=== PATIENT | male | born 1990 | race Caucasian/White ===

== ENCOUNTER 2020-06-08 17:36 | Emergency (ER) | payer SELFPAY ==
[2020-06-08 17:43] VITALS: BP 149/120; PULSE 117; RESP 20; TEMP 36.5; O2SAT 94
--- NOTE | 2020-06-08 17:54 | ED.GENADULT ---
HPI - General Adult General Chief complaint: Unspecified Stated complaint: SHAKEY, ETOH USE LAST NIGHT Time Seen by Provider: 06/08/20 17:51 Source: patient Mode of arrival: ambulatory Limitations: no limitations History of Present Illness HPI narrative: Patient is a 30-year-old male who presents complaining of nausea, vomiting and dizziness. Patient reports drinking 30+ alcoholic beverages last afternoon and evening. He denies chest pain or shortness of breath. He denies all other complaints. MD complaint: Nausea Related Data Home Medications Medication Instructions Recorded Confirmed metoprolol succinate 25 mg 25 mg PO DAILY 05/15/19 tablet,extended release 24 hr Allergies Allergy/AdvReac Type Severity Reaction Status Date / Time Cephalosporins Allergy Mild Unknown Verified 06/08/20 17:47 cefadroxil Allergy Unknown Skin Verified 06/08/20 17:47 Reaction Penicillins Allergy Unknown Rash Verified 06/08/20 17:47 Review of Systems Review of Systems: Narrative: CONSTITUTIONAL: Denies fever, chills, or sweats. EYES: Denies visual changes, redness, or discharge. ENT: Denies rhinorrhea, congestion, sore throat, or otalgia. CARDIOVASCULAR: Denies chest pain, palpitations, or edema. RESPIRATORY: Denies cough or dyspnea. GASTROINTESTINAL: Denies abdominal pain, reports nausea and vomiting. GENITOURINARY: Denies dysuria or hematuria. SKIN: Denies rash or itching. MUSCULOSKELETAL: Denies back pain, joint pain, or myalgia. NEUROLOGIC: Denies headache, numbness, dizziness, or weakness. PSYCHIATRIC: Denies anxiety or depression. [facility] Past Medical History Medical History Anxiety Bronchitis Exercise-induced asthma HTN (hypertension) IBS (irritable bowel syndrome) Migraines SVT (supraventricular tachycardia) Surgical History Surgical History H/O hernia repair Hx of tonsillectomy Family History Family History Grandparent Depression Mother Depression Hypertension Social History Social History Smoking status: Current every day smoker Alcohol intake: current Gender identity (if verbalized by the patient): Male Exam Narrative: Exam Narrative: GENERAL: Well-appearing, well-nourished, and in no acute distress. HEAD: Normocephalic, atraumatic. EYES: EOMI. No redness or drainage. Conjunctiva are normal. ENT: Mucous membranes pink and moist. CHEST: No respiratory distress. HEART: Regular rate and rhythm. No murmur appreciated. Normal peripheral pulses. GI: Soft, nontender without rebound, or guarding. No distention. Bowel sounds normal in all quadrants. EXTREMITIES: Normal range of motion. SKIN: Warm, dry, no rash. NEURO: No focal deficits. Alert and oriented x3. Gait steady. PSYCH: Normal affect. Patient appears slightly anxious. Course Vital Signs Vital signs: Vital Signs Temperature 36.5 C 06/08/20 17:43 Pulse Rate 117 H 06/08/20 17:43 Respiratory Rate 20 06/08/20 17:43 Blood Pressure 149/120 H 06/08/20 17:43 Pulse Oximetry 94 06/08/20 17:43 Temperature 36.5 C 06/08/20 17:43 Pulse Rate 117 H 06/08/20 17:43 Respiratory Rate 20 06/08/20 17:43 Blood Pressure 149/120 H 06/08/20 17:43 Pulse Oximetry 94 06/08/20 17:43 Reviewed. Patient has been instructed to follow-up with his PCP regarding his blood pressure. Medical Decision Making MDM Narrative Medical decision making narrative: Patient's vital signs are stable. Discussed with patient binge drinking. Patient well-hydrated in ED, Zofran given. Patient reports he is feeling better at this time. Patient is stable for discharge home with outpatient follow-up as needed. Differential Diagnosis Differential Diagnosis: EtOH, gastroenteritis, pancreatitis, viral illness, dehydration
[2020-06-08 18:19] LABS: Basophils Percent Auto 0.5 % (0.2-1.2); Eosinophils Percent Auto 0.4 % (0-4.4); Hematocrit 47.6 % (42.0-52.0); Hemoglobin 16.4 g/dL (14.0-18.0); Immature Granulocyte Absolute 0.03 K/mm3 (0.00-0.031); Immature Granulocyte Percent A 0.4 % (0-0.5); Lymphocytes Absolute Auto 1.75 K/mm3 (0.9-3.2); Lymphocytes Percent Auto 23.6 % (18.3-44.2); Mean Corpuscular HGB Conc 34.5 g/dl (32-36); Mean Corpuscular Hemoglobin 30.5 pg (26-34); Mean Corpuscular Volume 88.5 fl (80-100); Mean Platelet Volume 9.8 fl (7.4-10.4); Monocytes Absolute Auto 0.5 K/mm3 (0.1-0.6); Monocytes Percent Auto 6.9 % (2.6-8.5); Neutrophils Absolute Auto 5.1 K/mm3 (1.3-6.7); Neutrophils Percent Auto 68.2 % (45.5-73.1); Platelet Count Result 196 k/mm3 (150-375); Red Blood Count 5.38 M/mm3 (4.6-6.20); Red Cell Distribution Width 12.8 % (11.5-14.5); White Blood Count 7.4 K/mm3 (4.5-10.0)
[2020-06-08 18:30] VITALS: BP 147/106; PULSE 105; RESP 20; O2SAT 99
[2020-06-08] MEDS: SODIUM CHLORIDE 0.9% IV 1,000 ML 999 ML IV CONT ×2 (18:30→19:15)
[2020-06-08] MEDS: ONDANSETRON INJ 4 MG/2 ML VIAL IV PUSH (18:30)
[2020-06-08 18:32] LABS: Alanine Aminotransferase 147 U/L (4-50); Albumin Level 4.5 g/dL (3.5-5.1); Alkaline Phosphatase 73 U/L (38-126); Anion Gap 11 mmol/L (8-16); Aspartate Amino Transferase 86 U/L (17-59); Bilirubin,Total 0.5 mg/dL (0.2-1.3); Blood Urea Nitrogen 6 mg/dL (9-20); Calcium 9.2 mg/dL (8.4-10.2); Carbon Dioxide 25 mmol/L (22-30); Chloride 100 mmol/L (98-107); Estimated CRCL calculation 138 ml/min; Estimated Glomerular Filt Rate > 60; Glucose 119 mg/dL (75-110); Lipase 32 U/L (23-300); Potassium 4.1 mmol/L (3.4-5.0); Sodium 136 mmol/L (137-145)
[2020-06-08 18:53] VITALS: BP 144/96; PULSE 101; RESP 20; O2SAT 98
[2020-06-08 19:05] VITALS: PULSE 92
[2020-06-08 19:38] VITALS: BP 156/103; PULSE 92; RESP 18; O2SAT 100
== END 2020-06-08 19:46 | disposition home or self-care (01) ==
PROVIDERS: Emergency Provider Nurse Practitioner; PCP Physician Assistant
DX: E86.0 Dehydration (principal); F10.129 Alcohol abuse with intoxication, unspecified; F41.9 Anxiety disorder, unspecified; I10 Essential (primary) hypertension; K58.9 Irritable bowel syndrome, unspecified; J45.990 Exercise induced bronchospasm; F17.200 Nicotine dependence, unspecified, uncomplicated
CPT/HCPCS: 36415; 80053; 83690; 85025; 96361; 96374; 99284; J2405; J7030

== ENCOUNTER 2020-07-14 01:19 | Emergency (ER) | payer SELFPAY ==
--- NOTE | ~2020-07-14 | CT_ITS ---
EXAMINATION: CT brain wo con DATE: 07/14/2020 01:52 INDICATION: Head injury. Dizziness. TECHNIQUE: Computed tomography (CT) of the head was performed without intravenous contrast. The mA wa s adjusted according to patient size. Iterative reconstruction technique was employed. The dose-lengt h product was 681.00 mGy-cm. COMPARISON: Head CT 07/13/2010 FINDINGS: There is no intracranial hemorrhage, acute infarction, or abnormal intracranial mass lesion . The ventricles are normal in size. The orbits are normal. There is mild mucosal thickening in the p aranasal sinuses. The mastoid air cells are normal. There is right-sided scalp soft tissue swelling. Inferior to the right pinna, there is a 13 mm subcutaneous mass, likely a sebaceous cyst. IMPRESSION: 1. Normal brain. Reviewed, dictated and finalized at location A. HANDLERS SUPERVISOR IMPRESSION: 1. Normal brain.
--- NOTE | ~2020-07-14 | CT_ITS ---
EXAMINATION: CT cervical spine wo con DATE: 07/14/2020 01:53 INDICATION: Neck pain. Injury. TECHNIQUE: Computed tomography (CT) of the cervical spine was performed without intravenous contrast. Automated exposure control and iterative reconstruction technique were employed. The dose-length pro duct was 481.61 mGy-cm. COMPARISON: None FINDINGS: There is 7 degrees dextrocurvature of cervical spine. There is mild kyphosis of cervical sp ine. Vertebral body heights and intervertebral disc heights are normal. The following disc levels are specifically discussed: C2-C3: There is mild right uncovertebral joint osteoarthritis. There is no facet joint osteoarthritis . There is no neural foraminal stenosis. There is no central canal stenosis. C3-C4: There is mild bilateral uncovertebral joint osteoarthritis. There is mild left facet joint ost eoarthritis. There is no neural foraminal stenosis. There is no central canal stenosis. C4-C5: There is mild bilateral uncovertebral joint osteoarthritis. There is no facet joint osteoarthr itis. There is no neural foraminal stenosis. There is no central canal stenosis. C5-C6: There is mild bilateral uncovertebral joint osteoarthritis. There is no facet joint osteoarthr itis. There is no neural foraminal stenosis. There is mild central canal stenosis. C6-C7: There is no uncovertebral joint osteoarthritis. There is no facet joint osteoarthritis. There is no neural foraminal stenosis. There is no central canal stenosis. C7-T1: There is no uncovertebral joint osteoarthritis. There is mild bilateral facet joint osteoarthr itis. There is no neural foraminal stenosis. There is no central canal stenosis. IMPRESSION: 1. No fracture. 2. Mild cervical spondylosis. Reviewed, dictated and finalized at location A. [employer] OPERATIONS SPECIALIST
[2020-07-14 01:19] VITALS: BP 158/98; PULSE 112; RESP 18; TEMP 36.7; O2SAT 98
[2020-07-14] MEDS: fentaNYL CITRATE INJ (*CRX) 100 MCG/2 ML VIAL 50 MCG IV PUSH (01:39)
--- NOTE | 2020-07-14 02:42 | ED.FALL ---
HPI - Fall General Chief Complaint: Fall Stated Complaint: fall last night abrasion to head Time Seen by Provider: 07/14/20 01:23 History of Present Illness HPI Narrative: Patient is a 30-year-old male who presents ER after experiencing trauma to the head. Patient was walking slipped on ice and struck his head against a brick wall. Denies loss consciousness but did shear off a large portion repair to the frontoparietal region of his scalp. Reports later after striking his head he developed severe nausea and dizziness. No neck pain. Called EMS for further evaluation. Unknown last tetanus. Cannot describe aggravating or alleviating factors. Patient also experiencing mild frontal headache has not improved with Tylenol/ibuprofen. Related Data Home Medications Medication Instructions Recorded Confirmed metoprolol succinate 25 mg 25 mg PO DAILY 05/15/19 tablet,extended release 24 hr Allergies Allergy/AdvReac Type Severity Reaction Status Date / Time Cephalosporins Allergy Mild Unknown Verified 06/08/20 17:47 cefadroxil Allergy Unknown Skin Verified 06/08/20 17:47 Reaction Penicillins Allergy Unknown Rash Verified 06/08/20 17:47 Review of Systems Eyes: Eyes: Denies change in vision ENT: Reports dizziness and Denies nasal congestion Gastrointestinal: Gastrointestinal: Reports nausea and Denies vomiting Neurologic: Denies syncope, Reports headache(s), Denies focal weakness and Denies numbness PMFSH Past Medical History Medical History Anxiety Bronchitis Exercise-induced asthma HTN (hypertension) IBS (irritable bowel syndrome) Migraines SVT (supraventricular tachycardia) Surgical History Surgical History H/O hernia repair Hx of tonsillectomy Family History Family History Grandparent Depression Mother Depression Hypertension Social History Social History Smoking status: Current every day smoker Alcohol intake: current Gender identity (if verbalized by the patient): Male Exam Narrative: Exam Narrative: GENERAL: Well-appearing, well-nourished, and in no acute distress. HEAD: Normocephalic, abrasion with missing hair right frontoparietal region of the scalp. No lacerations. EYES: PERRL and EOMI. ENT: TMs normal bilaterally. NECK: C-spine immobilized. No midline tenderness. CHEST: Clear to auscultation. No respiratory distress. HEART: Regular rate and rhythm. Normal peripheral pulses. EXTREMITIES: Normal range of motion. No edema. NEURO: Alert and oriented x3. PSYCH: Normal mood and affect. Course Course Emergency Course: Headache better with fentanyl. Nausea and dizziness resolved with Zofran and meclizine. Discharge home. Vital Signs Vital signs: Vital Signs Temperature 98.1 F 07/14/20 01:19 Pulse Rate 112 H 07/14/20 01:19 Respiratory Rate 18 07/14/20 01:19 Blood Pressure 158/98 H 07/14/20 01:19 Pulse Oximetry 98 07/14/20 01:19 Temperature 98.1 F 07/14/20 01:19 Pulse Rate 112 H 07/14/20 01:19 Respiratory Rate 18 07/14/20 01:19 Blood Pressure 158/98 H 07/14/20 01:19 Pulse Oximetry 98 07/14/20 01:19 MDM - Fall Imaging Data Radiologist's impression: CT brain: No acute intracranial process. CT cervical spine: Mild degenerative change. No fracture or acute abnormality. Discharge Plan Discharge Clinical Impression: Concussion, Abrasion of scalp Patient Disposition: Home, Self-Care Condition: Stable Instructions: Concussion (ED), Abrasion (ED) Additional Instructions: Return to the ER if you cannot keep down food or water, you have fever over 100.4 ?F, you have constant persistent dizziness, you have additional concerns. Prescriptions: New ondansetron 4 mg tablet,disintegrating 4 mg PO Q6H PRN (
[2020-07-14 03:00] VITALS: BP 148/84; PULSE 102; RESP 16; O2SAT 97
[2020-07-14] MEDS: SODIUM CHLORIDE 0.9% IV 1,000 ML 999 ML IV CONT (03:15)
[2020-07-14] MEDS: TETANUS,DIPHTHERIA,AC PERTUSSIS ADULT (0.5 ML) BOOSTRIX IM (03:16)
[2020-07-14] MEDS: MECLIZINE HCL 25 MG TABLET PO (03:16)
[2020-07-14] MEDS: ONDANSETRON INJ 4 MG/2 ML VIAL IV PUSH (03:16)
[2020-07-14 04:00] VITALS: BP 128/83; PULSE 90; RESP 16; O2SAT 95
[2020-07-14 05:00] VITALS: BP 112/87; PULSE 87; RESP 16; O2SAT 95
== END 2020-07-14 05:05 | disposition home or self-care (01) ==
PROVIDERS: Emergency Provider Emergency Medicine; PCP Physician Assistant
DX: S06.0X0A Concussion without loss of consciousness, initial encounter (principal); S00.01XA Abrasion of scalp, initial encounter; Z23 Encounter for immunization; I10 Essential (primary) hypertension; K58.9 Irritable bowel syndrome, unspecified; J45.990 Exercise induced bronchospasm; F17.200 Nicotine dependence, unspecified, uncomplicated; W00.0XXA Fall on same level due to ice and snow, initial encounter
CPT/HCPCS: 70450; 72125; 90471; 90715; 96361; 96374; 96375; 99284; A9270; J2405; J3010; J7030

== ENCOUNTER 2020-10-27 02:41 | Emergency (ER) | payer SELFPAY ==
[2020-10-27 02:52] VITALS: BP 121/76; PULSE 100; RESP 18; TEMP 36.3; O2SAT 98
== END 2020-10-27 03:38 | disposition left against medical advice (07) ==
LOC: ANHED 03:23
PROVIDERS: PCP Physician Assistant
DX: F41.9 Anxiety disorder, unspecified (principal)
CPT/HCPCS: 99199

== ENCOUNTER → 2020-12-29 18:27 | Emergency (ER) | payer SELFPAY ==
--- NOTE | ~2020-12-29 | XR_ITS ---
EXAMINATION: XR chest 2V EXAM DATE: 12/29/2020 18:54 INDICATION: Midsternal chest pain. TECHNIQUE: Frontal and lateral projections of the chest obtained and reviewed. Comparison is made to prior examination from 01/12/2019. FINDINGS: The lungs are clear. There are no pleural effusions. The cardiomediastinal silhouette is upper limits of normal. There is no pneumothorax suspected. The bones and soft tissues are unremark able. IMPRESSION: No acute cardiopulmonary findings. Reviewed, dictated and finalized at location A.
--- NOTE | 2020-12-29 18:29 | ECG_ITS ---
Measurements Intervals [place] Rate: 78 P: -1 [place]: 174 QRS: 26 QRSD: 100 T: -11 QT: 366 QTc: 417 Interpretive Statements SINUS RHYTHM CONSIDER INFERIOR INFARCT, AGE INDETERMINATE BORDERLINE T WAVE ABNORMALITY- ANTERIOR LEADS ABNORMAL ECG Electronically Signed On 12-30-2020 6:25:47 CDT by Terry Brizuela D.O.
[2020-12-29 18:37] VITALS: BP 126/85; PULSE 78; RESP 20; TEMP 36.8; O2SAT 98
--- NOTE | 2020-12-29 18:57 | PC.NURSE ---
PT [facility] STATES TOOK XANAX BEFORE COMING IN AND IS STARTING TO FEEL BETTER. STATES NO LONGER WANTS TO BE SEEN. NOTIFIED OF RISKS OF LEAVING WITH OUT BEING SEEN. VERBALIZES UNDERSTANDING.
== END | disposition left against medical advice (07) ==
PROVIDERS: PCP Physician Assistant
DX: R07.9 Chest pain, unspecified (principal); Z53.21 Procedure and treatment not carried out due to patient leaving prior to being seen by health care provider
CPT/HCPCS: 71046; 93005

== ENCOUNTER 2021-01-15 23:47 | Emergency (ER) | payer SELFPAY ==
--- NOTE | ~2021-01-15 | XR_ITS ---
XR chest 2V DATE: 01/16/2021 00:35 INDICATION: Left chest pain. Shortness of breath. TECHNIQUE: PA and lateral views COMPARISON: 12/29/2020 PA and lateral chest FINDINGS: Probable bilateral prominent cardiophrenic fat pads. Heart size appears normal. No hilar or mediastinal enlargement. No pulmonary infiltrate or consolidation, pleural effusion or pulmonary vas cular congestion or pneumothorax is detected. Included skeletal structures are unremarkable. IMPRESSION: No active disease Reviewed, dictated and finalized at location A. IMPRESSION: No active disease
[2021-01-15 23:48] VITALS: BP 149/90; PULSE 96; RESP 24; TEMP 36.2; O2SAT 98
--- NOTE | 2021-01-15 23:55 | ECG_ITS ---
Measurements Intervals [place] Rate: 87 P: -1 [place]: 152 QRS: 42 QRSD: 97 T: 26 QT: 354 QTc: 428 Interpretive Statements SINUS RHYTHM NONSPECIFIC T-WAVE ABNORMALITY- ANT/INF LEADS BORDERLINE ECG Electronically Signed On 01-16-2021 5:50:09 CDT by Terry Brizuela D.O.
[2021-01-16 00:20] LABS: Basophils Percent Auto 0.4 % (0.2-1.2); Eosinophils Absolute Auto 0.2 K/mm3 (0-0.3); Eosinophils Percent Auto 2.2 % (0-4.4); Hematocrit 42.4 % (42.0-52.0); Hemoglobin 13.9 g/dL (14.0-18.0); Immature Granulocyte Absolute 0.02 K/mm3 (0.00-0.031); Immature Granulocyte Percent A 0.3 % (0-0.5); Lymphocytes Absolute Auto 2.73 K/mm3 (0.9-3.2); Lymphocytes Percent Auto 38.2 % (18.3-44.2); Mean Corpuscular HGB Conc 32.8 g/dl (32-36); Mean Corpuscular Hemoglobin 29.1 pg (26-34); Mean Corpuscular Volume 88.7 fl (80-100); Mean Platelet Volume 10.3 fl (7.4-10.4); Monocytes Absolute Auto 0.4 K/mm3 (0.1-0.6); Monocytes Percent Auto 5.7 % (2.6-8.5); Neutrophils Absolute Auto 3.8 K/mm3 (1.3-6.7); Neutrophils Percent Auto 53.2 % (45.5-73.1); Platelet Count Result 172 k/mm3 (150-375); Red Blood Count 4.78 M/mm3 (4.6-6.20); Red Cell Distribution Width 12.8 % (11.5-14.5); White Blood Count 7.2 K/mm3 (4.5-10.0)
[2021-01-16 00:30] LABS: Anion Gap 8 mmol/L (8-16); Blood Urea Nitrogen 8 mg/dL (9-20); Calcium 9.2 mg/dL (8.4-10.2); Carbon Dioxide 24 mmol/L (22-30); Chloride 104 mmol/L (98-107); Estimated CRCL calculation 132 ml/min; Estimated Glomerular Filt Rate > 60; Glucose 131 mg/dL (65-110); Sodium 136 mmol/L (137-145)
[2021-01-16 00:37] LABS: INR 0.9; Prothrombin Time 11.7 Seconds (11.1-14.7)
[2021-01-16 00:38] LABS: Partial Thromboplastin Time 26.1 SECONDS (22.3-36.8)
[2021-01-16 00:43] LABS: Troponin I < 0.012 ng/mL (0.000-0.034)
[2021-01-16 03:11] VITALS: PULSE 82
[2021-01-16 03:12] VITALS: O2SAT 97
[2021-01-16 03:48] LABS: Troponin I < 0.012 ng/mL (0.000-0.034)
[2021-01-16 04:10] VITALS: O2SAT 94
[2021-01-16 04:15] VITALS: BP 123/71; PULSE 74; RESP 22; O2SAT 96
[2021-01-16 04:16] VITALS: PULSE 71; RESP 19; O2SAT 95
--- NOTE | 2021-01-16 04:18 | ED.CHESTPAIN ---
HPI - Chest Pain General Chief Complaint: Chest Pain Stated Complaint: cp,sob, pulse low, start new metoprolol dose ton Time Seen by Provider: 01/16/21 04:05 Source: patient and RN notes reviewed Mode of arrival: ambulatory Limitations: no limitations History of Present Illness HPI narrative: This is a 30 year old male with history of anxiety, hypertension and tachycardia who presents for evaluation of shortness of breath and chest pain. Patient states he takes metoprolol for hypertension and tachycardia. Tonight he increased his dose from 50 mg to 100 mg on the advice of his PCP. He reports 1.5 hour after taking his metoprolol he woke up feeling like he was having midsternal chest pain and shortness of breath. He reports his pulse felt low but he is not sure. He reports he has been evaluated for similar episodes in the past which were panic attacks. He states he felt sob for 1-2 hours. His chest pressure is nonradiating and it has resolved. He denies nausea, vomiting, leg swelling. His symptoms have resolved. Related Data Home Medications Medication Instructions Recorded Confirmed buspirone 10 mg PO BID 01/15/21 fluoxetine mg 01/15/21 lisinopril 01/15/21 metoprolol tartrate 01/15/21 tramadol mg 01/15/21 Allergies Allergy/AdvReac Type Severity Reaction Status Date / Time Penicillins Allergy Rash Verified 01/16/21 03:12 Review of Systems Review of Systems: All systems reviewed & are unremarkable except as noted in HPI and below PMFSH Past Medical History Medical History (Updated 01/16/21 @ 04:26 by Lisandra Leon MD) Anxiety Hypertension Tachycardia Social History Social History (Updated 01/16/21 @ 04:24 by Lisandra Leon MD) Smoking status: Current every day smoker Gender identity (if verbalized by the patient): Male Sexual Orientation (if Verbalized by the Patient): Straight or Heterosexual Exam Const: General: no acute distress and alert Orientation/consciousness: patient oriented x3 Eyes: EOM: EOMs intact bilaterally Chest: Chest palpation & inspection: normal inspection of the chest Resp: Effort & Inspection: normal respiratory effort and no retractions Auscultation: clear to auscultation bilaterally Cardio: Rate: regular rate Rhythm: regular rhythm Heart sounds: no murmurs GI: GI Palp: Yes Soft to palpation, No Tenderness to palpation present (GI) and No Guarding due to palpation present (GI) Auscultation: normal bowel sounds Neuro: General: patient oriented x3, moves all extremities and CN's II-XI intact bilaterally Extrem: General: normal to inspection Psych: Mental Status: mental status grossly normal Affect: normal affect Course Reevaluation(s) Reevaluation #1: I discussed with patient labs are unremarkable. This is likely anxiety attack. He will call PCP about his metoprolol dosage. HR in ER is 70s. Date: 01/16/21 Time: 04:24 Vital Signs Vital signs: Vital Signs Temperature 97.1 F L 01/15/21 23:48 Pulse Rate 96 01/15/21 23:48 Respiratory Rate 24 H 01/15/21 23:48 Blood Pressure 149/90 H 01/15/21 23:48 Pulse Oximetry 98 01/15/21 23:48 Temperature 97.1 F L 01/15/21 23:48 Pulse Rate 71 01/16/21 04:16 Respiratory Rate 19 01/16/21 04:16 Blood Pressure 123/71 01/16/21 04:15 Pulse Oximetry 95 01/16/21 04:16 MDM - Chest Pain Lab Data Attestation: I reviewed the patient's lab results. Result diagrams: 01/16/21 00:08 01/16/21 00:08 Labs: Lab Results 01/16/21 01/16/21 01/16/21 Range/Units 00:08 00:08 00:08 WBC 7.2 (4.5-10.0) K/mm3 RBC 4.78 (4.6-6.20) M/mm3 Hgb 13.9 L (14.0-18.0) g/dL Hct 42.4 (42.0-52.0) % MCV 88.7 (80-100) fl MCH 29.1 (26-34) pg MCHC 32.8 (32-36) g/dl RDW 12.8 (11.5-14.5) % Plt Count 172 (150-375) k/mm3 MPV 10.3 (7.4-10.4) fl Immature Gran % (Auto) 0.3 (0-0.5) % Neut % (Auto) 53.2 (45.5-73.1)
== END 2021-01-16 04:31 | disposition home or self-care (01) ==
PROVIDERS: Emergency Provider General Practice; PCP Physician Assistant
DX: R07.89 Other chest pain (principal); F41.9 Anxiety disorder, unspecified; I10 Essential (primary) hypertension; F17.210 Nicotine dependence, cigarettes, uncomplicated
CPT/HCPCS: 36415; 71046; 80048; 84484; 85025; 85610; 85730; 93005; 99284

== ENCOUNTER 2021-01-20 19:52 | Observation (INO) | payer SELFPAY ==
--- NOTE | ~2021-01-20 | CT_ITS ---
EXAMINATION: CT abdomen pelvis w con DATE: 01/20/2021 23:29 INDICATION: Right upper quadrant abdominal pain today TECHNIQUE: Computed tomography (CT) of the abdomen and pelvis was performed with 100 cc Omnipaque 350 intravenous contrast. Automated exposure control and iterative reconstruction technique were employe d. Exam dose: 1061.78 mGy-cm total exam DLP. COMPARISON: None. FINDINGS: Minimal atelectasis at the dependent lower lobes. No pericardial or pleural effusion. Diffuse hepatic steatosis. The gallbladder is distended. No gallbladder wall thickening or pericholecystic fluid or fat strandin g is evident. No bile duct or pancreatic duct dilatation. No pancreatic mass lesion or calcification. Normal splenic size. Normal morphology of the adrenal glands. 2.2 cm upper pole left renal probable cyst. Otherwise no renal mass lesion or urinary tract calculus or hydroureteronephrosis. The urinary bladder is unremarkable. Prostate calcifications are noted. Normal caliber of the abdominal aorta. No intraperitoneal or retroperitoneal or pelvic mass lesion or adenopathy or ascites. Normal appendix. No bowel obstruction, bowel wall thickening, pneumatosis or intraperitoneal free air . Small fat-containing umbilical hernia. Small fat-containing left inguinal hernia. No suspicious osteolytic or osteoblastic lesions. IMPRESSION: Distended gallbladder; consider gallbladder ultrasound examination considering the histor y of right upper quadrant abdominal pain Hepatic steatosis 2.2 cm upper pole left renal probable cyst Normal appendix Reviewed, dictated and finalized at Location A. Reviewed, dictated and finalized at location A. IMPRESSION: Distended gallbladder; consider gallbladder ultrasound examination considering the history of right upper quadrant abdominal pain Hepatic steatosis 2.2 cm upper pole left renal probable cyst Normal appendix
--- NOTE | ~2021-01-20 | US_ITS ---
EXAMINATION: US right upper quadrant DATE: 01/21/2021 08:47 INDICATION: Right upper quadrant abdominal pain. TECHNIQUE: Multiple grayscale and Doppler ultrasound images of the abdomen were obtained. COMPARISON: CT abdomen and pelvis 01/20/2021 FINDINGS: The visualized portions of the head and body of the pancreas are normal. There is diffuse h epatic steatosis. There is normal flow in main portal vein. The gallbladder is distended and contains gallstones. Gallbladder wall thickening is noted. The common duct is normal and measures 5 mm. There was no sonographic Powell sign. IMPRESSION: 1. Distended gallbladder with gallstones and gallbladder wall thickening, but no sonographic Powell s ign, consistent with acute cholecystitis. 2. Diffuse hepatic steatosis. Reviewed, dictated and finalized at location B. IMPRESSION: 1. Distended gallbladder with gallstones and gallbladder wall thickening, but n o sonographic Powell sign, consistent with acute cholecystitis. 2. Diffuse hepatic steatosis.
[2021-01-20 19:55] VITALS: BP 173/113; PULSE 57; RESP 18; TEMP 35.9; O2SAT 97
[2021-01-20 20:09] LABS: Basophils Percent Auto 0.3 % (0.2-1.2); Eosinophils Absolute Auto 0.2 K/mm3 (0-0.3); Eosinophils Percent Auto 1.8 % (0-4.4); Hematocrit 46.9 % (42.0-52.0); Hemoglobin 15.6 g/dL (14.0-18.0); Immature Granulocyte Absolute 0.04 K/mm3 (0.00-0.031); Immature Granulocyte Percent A 0.4 % (0-0.5); Lymphocytes Absolute Auto 2.25 K/mm3 (0.9-3.2); Lymphocytes Percent Auto 22.7 % (18.3-44.2); Mean Corpuscular HGB Conc 33.3 g/dl (32-36); Mean Corpuscular Hemoglobin 29.5 pg (26-34); Mean Corpuscular Volume 88.8 fl (80-100); Mean Platelet Volume 10.3 fl (7.4-10.4); Monocytes Absolute Auto 0.5 K/mm3 (0.1-0.6); Monocytes Percent Auto 5.1 % (2.6-8.5); Neutrophils Absolute Auto 6.9 K/mm3 (1.3-6.7); Neutrophils Percent Auto 69.7 % (45.5-73.1); Platelet Count Result 213 k/mm3 (150-375); Red Blood Count 5.28 M/mm3 (4.6-6.20); White Blood Count 9.9 K/mm3 (4.5-10.0)
[2021-01-20 20:22] LABS: Alanine Aminotransferase 95 U/L (4-50); Albumin Level 4.5 g/dL (3.5-5.1); Alkaline Phosphatase 66 U/L (38-126); Anion Gap 5 mmol/L (8-16); Aspartate Amino Transferase 58 U/L (17-59); Bilirubin,Total 0.5 mg/dL (0.2-1.3); Blood Urea Nitrogen 7 mg/dL (9-20); Calcium 10.1 mg/dL (8.4-10.2); Carbon Dioxide 29 mmol/L (22-30); Chloride 102 mmol/L (98-107); Estimated CRCL calculation 99 ml/min; Estimated Glomerular Filt Rate > 60; Glucose 105 mg/dL (65-110); Lipase 60 U/L (23-300); Potassium 4.1 mmol/L (3.4-5.0); Sodium 136 mmol/L (137-145)
[2021-01-20 20:48] LABS: Add Urine Microscopic? NO; Appearance Urine Clear (Clear); Bilirubin Urine Negative (Negative); Blood Urine Negative (Negative); Color Urine Yellow (Yellow); Glucose Urine UA Negative (Negative); Ketones Urine Negative (Negative); Leukocyte Esterase Ur Negative LEU/UL (Negative); Nitrate Urine Negative (Negative); Protein Urine Negative (Negative); Specific Grav Ur 1.014 (1.001-1.035); Urobilinogen Urine Negative mg/dL (<2.0)
[2021-01-20 22:06] VITALS: BP 175/100; PULSE 56; RESP 18; O2SAT 99
[2021-01-20] MEDS: ONDANSETRON INJ 4 MG/2 ML VIAL IV PUSH (22:53)
[2021-01-20] MEDS: MORPHINE SULFATE (*CRX) 4 MG/ML INJ IV PUSH (22:54)
[2021-01-20 22:56] VITALS: BP 193/137; PULSE 70; RESP 17; O2SAT 98
[2021-01-20] MEDS: SODIUM CHLORIDE 0.9% IV 1,000 ML 999 ML IV CONT (22:56)
[2021-01-20] MEDS: HYDROmorphone HCL INJ (*CRX) 1 MG/ML SYR IV PUSH (23:47)
[2021-01-21] VITALS (19 sets, daily range): BP systolic 113–175; BP diastolic 66–117; PULSE 51–86; RESP 10–20; TEMP 36.4–36.9; O2SAT 93–100; BMI 34.4
--- NOTE | 2021-01-21 | ED.ABDPAIN ---
HPI - Abdominal Pain General Chief Complaint: Abdominal Pain Stated Complaint: abd pain/ ulcer? Time Seen by Provider: 01/20/21 22:21 History of Present Illness HPI narrative: Patient is a 30-year-old male who presents ER with right upper quadrant abdominal pain. Sudden onset just prior to arrival. Sharp. Radiates to his right back and shoulder. Associate with nausea and vomiting. He is also having sweats. No documented fevers but feels warm. Has not had similar symptoms previously. No known aggravating factors. Related Data Home Medications Medication Instructions Recorded Confirmed metoprolol succinate 25 mg 25 mg PO DAILY 05/15/19 tablet,extended release 24 hr Allergies Allergy/AdvReac Type Severity Reaction Status Date / Time Cephalosporins Allergy Mild Unknown Verified 01/20/21 22:32 cefadroxil Allergy Unknown Skin Verified 01/20/21 22:32 Reaction Penicillins Allergy Unknown Rash Verified 01/20/21 22:32 Review of Systems Constitutional: Constitutional: Reports chills, Denies fever(s) and Denies weakness ENT: Denies nasal congestion and Denies sore throat Gastrointestinal: Gastrointestinal: Reports abdominal pain, Reports diarrhea (2 episodes a day for 3 days), Reports nausea and Reports vomiting Genitourinary: Genitourinary: Denies hematuria, Denies dysuria and Denies urinary frequency Musculoskeletal: Musculoskeletal: Denies back pain and Denies muscle cramps PMFSH Past Medical History Medical History Anxiety Bronchitis Exercise-induced asthma HTN (hypertension) IBS (irritable bowel syndrome) Migraines SVT (supraventricular tachycardia) Surgical History Surgical History H/O hernia repair Hx of tonsillectomy Family History Family History Grandparent Depression Mother Depression Hypertension Social History Social History Smoking status: Current every day smoker Alcohol intake: current Gender identity (if verbalized by the patient): Male Exam Narrative: GENERAL: Uncomfortable-appearing, well-nourished, and actively vomiting. HEAD: Normocephalic, atraumatic. ENT: Mucous membranes moist. CHEST: Clear to auscultation. No respiratory distress. HEART: Regular rate and rhythm. Normal peripheral pulses. ABDOMEN: Soft, mild palpation to epigastrium and right upper quadrant with guarding, nondistended, normal active bowel sounds. EXTREMITIES: Normal range of motion. No edema. SKIN: Warm, dry, no rash. NEURO: Alert and oriented x3. PSYCH: Normal mood and affect. Course Course Emergency Course: Patient with persistent pain despite morphine and Dilaudid. Still very nauseous. Admit to general surgery. Keep n.p.o. Obtain ultrasound in the morning. Vital Signs Vital signs: Vital Signs Temperature 96.6 F L 01/20/21 19:55 Pulse Rate 57 L 01/20/21 19:55 Respiratory Rate 18 01/20/21 19:55 Blood Pressure 173/113 H 01/20/21 19:55 Pulse Oximetry 97 01/20/21 19:55 Temperature 96.6 F L 01/20/21 19:55 Pulse Rate 70 01/20/21 22:56 Respiratory Rate 17 01/20/21 22:56 Blood Pressure 193/137 H 01/20/21 22:56 Pulse Oximetry 98 01/20/21 22:56 MDM - Abdominal Pain Lab Data Result diagrams: 01/20/21 20:02 01/20/21 20:02 Labs: Lab Results 01/20/21 01/20/21 01/20/21 Range/Units 20:02 20:02 20:36 WBC 9.9 (4.5-10.0) K/mm3 RBC 5.28 (4.6-6.20) M/mm3 Hgb 15.6 (14.0-18.0) g/dL Hct 46.9 (42.0-52.0) % MCV 88.8 (80-100) fl MCH 29.5 (26-34) pg MCHC 33.3 (32-36) g/dl RDW 13.0 (11.5-14.5) % Plt Count 213 (150-375) k/mm3 MPV 10.3 (7.4-10.4) fl Immature Gran % (Auto) 0.4 (0-0.5) % Neut % (Auto) 69.7 (45.5-73.1) % Lymph % (Auto) 22.7 (18.3-44.2
[2021-01-21] MEDS: HYDROmorphone HCL INJ (*CRX) 1 MG/ML SYR IV PUSH ×2 (02:04→12:38)
[2021-01-21] MEDS: MORPHINE SULFATE (*CRX) 4 MG/ML INJ IV PUSH ×4 (03:16→09:05)
[2021-01-21] MEDS: ONDANSETRON INJ 4 MG/2 ML VIAL IV PUSH ×3 (03:17→12:37)
--- NOTE | 2021-01-21 06:07 | ADMGEN ---
01/21/21 at 0250--This patient, Dom Musa, was admitted to [facility] Surg Room 323-02. Patient/family oriented to hospital policies and general routines including ID bracelet, bed and alarms, visiting hours, pain management, procedures, bathroom and other care routines, personal items, smoking policy, room service/diet, and visiting hours. Information on how to activate the Rapid Response Team has been discussed. Patient/Family are encouraged to report perceived risks to care and to ask questions if they do not understand what they are told or what they should do. TDialRNC
--- NOTE | 2021-01-21 08:31 | PC.NURSE ---
830am pt leaving floor for ultrasound.
--- NOTE | 2021-01-21 10:12 | PM.IMHP ---
H&P: HPI History of Present Illness Date/Time: 01/21/21 10:12 Chief Complaint: Right upper quadrant pain Narrative: This is a 30-year-old man who presented to the emergency department overnight with complaints of right upper quadrant abdominal pain that started on 01/20/2021. He states that the pain started around lunchtime but he does not recall anything that he ate for breakfast or at lunch when the pain started. The night before he had eaten chicken salad sandwich but does not recall anything else out of the normal. He has had mild episodes of pain in the past and does have IBS, but he has never had any symptoms like this severe before. He did start having nausea and vomiting in the emergency department and pain was becoming more severe. He denies any family history of gallbladder problems. He denies any fevers or chills. Since being admitted, he is still experiencing pain and is requiring morphine or Dilaudid to help control the pain. Review of Systems Review of Systems: All systems reviewed & are unremarkable except as noted in HPI and below Eyes: Eyes: Denies change in vision ENT: Denies hearing loss, Denies neck pain and Denies sore throat Cardiovascular: Cardiovascular: Denies chest pain and Denies dyspnea Respiratory: Respiratory: Denies cough, Denies dyspnea and Denies wheezing Gastrointestinal: Gastrointestinal: Reports as per HPI, Reports abdominal pain, Reports nausea and Reports vomiting Genitourinary: Genitourinary: Denies hematuria and Denies dysuria Musculoskeletal: Musculoskeletal: Denies arthralgias, Denies joint swelling and Denies neck pain Allergic/Immunologic: Allergic/Immunologic: Denies wheezing [facility] Past Medical History Medical History (Updated 01/21/21 @ 10:17 by Donaldo Garrison DO) Anxiety Bronchitis Exercise-induced asthma HTN (hypertension) IBS (irritable bowel syndrome) Migraines SVT (supraventricular tachycardia) Surgical History Surgical History H/O hernia repair Hx of tonsillectomy Family History Family History Grandparent Depression Mother Depression Hypertension Social History Social History Smoking status: Current every day smoker Tobacco type: cigarettes Second hand tobacco smoke exposure: No Alcohol intake: current Drinks per week: 1 Substance use: never Gender identity (if verbalized by the patient): Male Spiritual care concerns: No Meds Home Medications and Allergies Home Medications Medication Instructions Recorded Confirmed Type metoprolol succinate 25 mg 50 mg PO DAILY 05/15/19 01/21/21 History tablet,extended release 24 hr meclizine 25 mg PO TID PRN #20 tablet 07/14/20 01/21/21 Rx ondansetron 4 mg PO Q6H PRN #10 tablet 07/14/20 01/21/21 Rx acetaminophen [Tylenol Extra 500 mg PO Q6H PRN 01/21/21 01/21/21 History Strength] alprazolam [Xanax] 0.5 mg PO .COMPLEX 01/21/21 01/21/21 History buspirone [BuSpar] 10 mg PO BID 01/21/21 01/21/21 History fluoxetine [Prozac] 20 mg PO DAILY 01/21/21 01/21/21 History lisinopril 5 mg PO DAILY 01/21/21 01/21/21 History loperamide [Imodium] 2 mg PO QID PRN 01/21/21 01/21/21 History tramadol [Ultram] 50 mg PO Q8H PRN 01/21/21 01/21/21 History trazodone 50 mg PO HS 01/21/21 01/21/21 History Allergies Allergy/AdvReac Type Severity Reaction Status Date / Time Cephalosporins Allergy Mild Unknown Verified 01/20/21 22:32 cefadroxil Allergy Unknown Skin Verified 01/20/21 22:32 Reaction Penicillins Allergy Unknown Rash Verified 01/20/21 22:32 Vital Signs Vital Signs - 24 hr 01/20/21 19:55 01/20/21 22:06 01/20/21 22:56 Temperature 35.9 C L Pulse Rate 57 L 56 L 70 Respiratory Rate 18 18 17 Blood Pressure 173/113 H 175/100 H 193/137 H Pulse Oximetry 97 99 98 01/21/21 02:08 01/21/21 04:00 01/21/21 06:09
[2021-01-21] MEDS: HYDROmorphone HCL INJ (*CRX) 1 MG/ML SYR 0.5 MG IV PUSH (10:34)
[2021-01-21] MEDS: LACTATED RINGERS 1,000 ML 150 ML IV CONT (10:34)
[2021-01-21] MEDS: METOPROLOL SUCCINATE EXT REL 50 MG TABCR PO (10:45)
[2021-01-21] MEDS: FLUoxetine HCL 20 MG CAPSULE PO (10:45)
[2021-01-21] MEDS: lisinopriL 5 MG TABLET PO (10:45)
--- NOTE | 2021-01-21 12:35 | WPDANESEPPF ---
Anes - Initial Pre Proc Eval Procedure: Operation Date: 01/21/21 16:30 Proposed Procedures p Laparoscopic Cholecystectomy,Possible Open - Donaldo Garirson DO Date/Time: 01/21/21 12:35 Surgeon: Donaldo Garrison DO Pre Op Diagnosis: Ruq Pain Patient Data Age: 30 Gender: M Height: 1.78 m Weight: 108.9 kg Last Vital Signs Temp 36.5 C 01/21/21 06:09 Pulse 65 01/21/21 10:45 Resp 18 01/21/21 06:09 BP 150/90 H 01/21/21 06:09 Pulse Ox 98 01/21/21 11:25 Allergies Allergy/AdvReac Type Severity Reaction Status Date / Time Cephalosporins Allergy Mild Unknown Verified 01/20/21 22:32 cefadroxil Allergy Unknown Skin Verified 01/20/21 22:32 Reaction Penicillins Allergy Unknown Rash Verified 01/20/21 22:32 Home Medications Medication Instructions Recorded Confirmed Type metoprolol succinate 25 mg 50 mg PO DAILY 05/15/19 01/21/21 History tablet,extended release 24 hr meclizine 25 mg PO TID PRN #20 tablet 07/14/20 01/21/21 Rx ondansetron 4 mg PO Q6H PRN #10 tablet 07/14/20 01/21/21 Rx acetaminophen [Tylenol Extra 500 mg PO Q6H PRN 01/21/21 01/21/21 History Strength] alprazolam [Xanax] 0.5 mg PO .COMPLEX 01/21/21 01/21/21 History buspirone [BuSpar] 10 mg PO BID 01/21/21 01/21/21 History fluoxetine [Prozac] 20 mg PO DAILY 01/21/21 01/21/21 History lisinopril 5 mg PO DAILY 01/21/21 01/21/21 History loperamide [Imodium] 2 mg PO QID PRN 01/21/21 01/21/21 History tramadol [Ultram] 50 mg PO Q8H PRN 01/21/21 01/21/21 History trazodone 50 mg PO HS 01/21/21 01/21/21 History Laboratory Tests 01/20/21 01/20/21 01/20/21 20:02 20:02 20:36 WBC 9.9 K/mm3 K/mm3 (4.5-10.0) RBC 5.28 M/mm3 M/mm3 (4.6-6.20) Hgb 15.6 g/dL g/dL (14.0-18.0) Hct 46.9 % % (42.0-52.0) MCV 88.8 fl fl (80-100) MCH 29.5 pg pg (26-34) MCHC 33.3 g/dl g/dl (32-36) RDW 13.0 % % (11.5-14.5) Plt Count 213 k/mm3 k/mm3 (150-375) MPV 10.3 fl fl (7.4-10.4) Immature Gran % (Auto) 0.4 % % (0-0.5) Neut % (Auto) 69.7 % % (45.5-73.1) Lymph % (Auto) 22.7 % % (18.3-44.2) [place] % (Auto) 5.1 % % (2.6-8.5) Eos % (Auto) 1.8 % % (0-4.4) Baso % (Auto) 0.3 % % (0.2-1.2) Lymph # (Auto) 2.25 K/mm3 K/mm3 (0.9-3.2) [place] # (Auto) 0.5 K/mm3 K/mm3 (0.1-0.6) Eos # (Auto) 0.2 K/mm3 K/mm3 (0-0.3) Baso # (Auto) 0.0 K/mm3 K/mm3 (0.0-0.1) Abs Immat Gran (auto) 0.04 K/mm3 H K/mm3 (0.00-0.031) Absolute Neuts (auto) 6.9 K/mm3 H K/mm3 (1.3-6.7) Absolute Nucleated RBC 0.0 K/mm3 K/mm3 (0.0-0.012) Nucleated RBC % 0.0 % % (0.0-0.2) Sodium 136 mmol/L L mmol/L (137-145) Potassium 4.1 mmol/L mmol/L (3.4-5.0) Chloride 102 mmol/L mmol/L (98-107) Carbon Dioxide 29 mmol/L mmol/L (22-30) Anion Gap 5 mmol/L L mmol/L (8-16) BUN 7 mg/dL L mg/dL (9-20) Creatinine 1.00 mg/dL mg/dL (0.7-1.3) Estim Creat Clear Calc 99 ml/min ml/min Estimated GFR > 60 (59 - ) Glucose 105 mg/dL mg/dL (65-110) Calcium 10.1 mg/dL mg/dL (8.4-10.2) Total Bilirubin 0.5 mg/dL mg/dL (0.2-1.3) AST 58 U/L U/L (17-59) ALT 95 U/L H U/L (4-50) Alkaline Phosphatase 66 U/L U/L (38-126) Total Protein 8.0 g/dL g/dL (6.3-8.2) Albumin 4.5 g/dL g/dL (3.5-5.1) Lipase 60 U/L U/L (23-300) Urine Color Yellow (Yellow) Urine Appearance Clear (Clear) Urine pH 6.0 (5.0-9.0) Ur Specific [place] 1.014 (1.001-1.035) Urine Protein Negative mg/dL mg/dL (Negative) Urine Glucose (UA) Negative mg/dL mg/dL (Negative) Urine Ketones Negative mg/dL mg/dL (Negative)
[2021-01-21] MEDS: LACTATED RINGERS 1,000 ML 30 ML IV CONT ×2 (14:35→16:59)
--- NOTE | 2021-01-21 15:18 | WPDHPUPDATE1 ---
History and Physical Update Update Date/Time: 01/21/21 15:18 History and Physical has been reviewed, including an updated exam of the patient. There are NO changes in the patient's condition. Risks, benefits, and alternatives have been discussed and questions answered. Patient agrees to proceed with procedure.
[2021-01-21] MEDS: fentaNYL CITRATE INJ (*CRX) 100 MCG/2 ML VIAL 50 MCG IV PUSH (15:43)
[2021-01-21] MEDS: CLINDAMYCIN 900 MG/D5W 50 ML 900 MG/50 ML PIGGYBACK 50 MG IVPB (15:51)
--- NOTE | 2021-01-21 15:57 | PC.NURSE ---
To OR per bed at 1430, IV saline locked.
[2021-01-21] MEDS: BUPIVACAINE/EPINEPHRINE 0.5% 50 ML VIAL (16:16)
--- NOTE | 2021-01-21 16:53 | W.PM.PROC2 ---
Procedure Note - Detailed Date of Procedure 01/21/21 Pre-op Diagnosis Acute calculous cholecystitis Post-op Diagnosis other ( acute/chronic calculous cholecystitis, gallbladder hydrops) Procedure Performed Laparoscopic Cholecystectomy Surgeon Donaldo Garrison, DO Anesthesia general and local ( 0.5% bupivacaine with epinephrine.) Indications This is a 30-year-old man who presented to the emergency department overnight with complaints of sharp right upper quadrant abdominal pain that started yesterday. He does not recall any particular food that he ate that caused this pain. He has had mild episodes of upper abdominal pain in the past and does have a history of IBS. This pain became more severe and constant and he also began experiencing nausea and vomiting. He had a normal white blood count and liver enzymes were normal except for a slightly elevated transaminase levels. A CT of his abdomen and pelvis was obtained and this showed evidence of a distended gallbladder. He was then admitted and gallbladder ultrasound was obtained this morning. This showed evidence of cholelithiasis and gallbladder wall thickening consistent with acute or chronic cholecystitis. Discussions were made with the patient about treatment options and decision was made to proceed with laparoscopic cholecystectomy, possible open. Findings Laparoscopic cholecystectomy was performed. The gallbladder appeared distended and was somewhat difficult to grasp. A laparoscopic aspirating needle was used to aspirate about 50 cc of clear mucus bile from the fundus of the gallbladder. This decompressed the gallbladder enough to allow out to be grasped and mobilized. He also had some evidence of chronic gallbladder wall thickening and some gallbladder wall edema. The cystic duct appeared normal in size. There were several stones within the gallbladder. The gallbladder was removed and sent to lab for pathology. Description of Procedure Procedure as well as risks, benefits, and alternatives were discussed with patient. Written consent was obtained and placed in chart prior to procedure. The patient was brought back to surgical suite. Patient was placed in supine position on operating table. Time-out was done to confirm patient and procedure. Patient was then intubated by the anesthesia department. Abdomen was prepped and draped in sterile fashion using chlorhexidine prep. 0.5% bupivacaine with epinephrine was infiltrated at each site of incision. A 5 millimeter incision was made near the umbilicus, and a 5 millimeter Optiview trocar was advanced through the abdominal layers under direct visualization. Once inside the abdominal cavity, carbon dioxide was insufflated to create a pneumoperitoneum. The camera was inserted and the abdomen was inspected. No immediate abnormalities were identified. The patient was placed in reverse Trendelenburg position and rotated slightly to the left. An 11 millimeter incision was made in the subxiphoid region, and an 11 millimeter trocar was inserted under direct visualization. Two 5 millimeter incisions were made in the right upper quadrant, and two 5 millimeter trocars were inserted under direct visualization. The gallbladder was identified and grasped at the fundus and retracted superiorly. It was then grasped at the infundibulum retracted laterally. Careful dissection around the neck of the gallbladder was performed using blunt dissection with a [place] grasper and hook electrocautery. The cystic duct was identified, and a window was created behind it. The cystic artery was also identified and a window was created behind it. The critical view of safety was identified, visualizing the cystic duct running directly into the neck of the gallbladder, and the cystic artery running directly into the wall of the gallbladder. A 5 millimeter clip program support assistant was then used to place 2 clips proximally and 1 clip distally on both the cystic duct and cystic artery.
[2021-01-21] MEDS: fentaNYL CITRATE INJ (*CRX) 100 MCG/2 ML VIAL 25 MCG IV PUSH (17:22)
[2021-01-21] MEDS: LACTATED RINGERS 1,000 ML 100 ML IV CONT (18:19)
--- NOTE | 2021-01-21 19:30 | PM.DS ---
DS: Admitting Diagnosis Admitting Diagnosis Acute calculous cholecystitis, hypertension, BMI 34, tobacco abuse DS: Discharge Diagnosis Discharge Diagnosis (1) Acute calculous cholecystitis: Code(s): K80.00 - Calculus of gallbladder with acute cholecystitis without obstruction Status: Acute (2) HTN (hypertension): Qualifiers: Hypertension type: primary hypertension Qualified Code(s): I10 - Essential (primary) hypertension Code(s): I10 - Essential (primary) hypertension Status: Acute (3) BMI 34.0-34.9,adult: Code(s): Z68.34 - Body mass index [BMI] 34.0-34.9, adult Status: Acute (4) Tobacco use: Code(s): Z72.0 - Tobacco use Status: Acute DS: Summary Hospital Course Reason for hospitalization: Acute calculous cholecystitis. Hospital Course: This is a 30-year-old man who presented to the emergency department on 01/21/2021 with complaints right upper quadrant abdominal pain. CT showed evidence of a distended gallbladder. He continued to have constant abdominal pain. He was admitted and further workup was performed with a gallbladder ultrasound. This showed evidence of cholelithiasis and gallbladder wall thickening consistent with acute cholecystitis. Discussions were made with the patient about his treatment options and he was then taken for laparoscopic cholecystectomy on 01/21/2021. Surgery was uncomplicated and he was returned to the surgical floor postoperatively. His diet and activity were advanced as tolerated. Later on that evening, he was tolerating a low-fat diet, pain was controlled, he was ambulating in the halls, and is vitals remained stable. He was discharged on 01/21/2021. Status at Discharge Functional status at discharge: independent ambulation Overall status at discharge: patient is progressing back to baseline Time Spent with Patient Time attestation: Total time spent providing and/or coordinating discharge services: Time spent: Less than 30 minutes Exam Narrative: Unchanged from the morning, except for surgical changes DS: Data Data Completed and Pending Completed studies during hospitalization: Pending at discharge 01/21/21 16:09 Surgical [PTH] Routine Imaging Radiologist's impression: ITS Impressions Abdomen/Pelvis CT 01/20/21 23:32 IMPRESSION: Distended gallbladder; consider gallbladder ultrasound examination considering the history of right upper quadrant abdominal pain Hepatic steatosis 2.2 cm upper pole left renal probable cyst Normal appendix Upper Quadrant Ultrasound 01/21/21 08:50 IMPRESSION: 1. Distended gallbladder with gallstones and gallbladder wall thickening, but no sonographic Powell sign, consistent with acute cholecystitis. 2. Diffuse hepatic steatosis. Discharge Plan Discharge Attending physician on discharge: Donaldo Zendejas Consulting providers: Polo Barker ; Justin Isbell V. Discharging Clinician: Donaldo Zendejas Anticipated Discharge Date/Time: 01/21/21 20:00 Patient Disposition: Home, Self-Care Activity: other - see discharge instructions Diet: other - see discharge instructions Wound Care Instructions: follow printed instructions Discharge Instructions: DISCHARGE INSTRUCTION SHEET FOR HERNIA, GALLBLADDER AND APPENDIX SURGERIES DR. ZENDEJAS PATIENT TO TAKE HOME 1. May shower in 24 hours, no soaking in bath x 2weeks. 2. Call office for: Wound increasingly painful or bleeding Vomiting Fever of greater than 101 degrees 3. If no bowel movement for three days, take 1 oz. (30 ml) Milk of Magnesia or MiraLax 17g 1 to 2 times daily. 4. No heavy lifting > 10-15 pounds x weeks for hernia repairs and 2 weeks for laparoscopic cholecystectomy or appendectomy. 5. No driving for 3 days or while taking narcotic pain medications. 6. Ice to surgical site for 48 hours (30 min on, then 30 min off).
--- NOTE | 2021-01-21 19:34 | PC.NURSE ---
Returned from OR per stretcher at 1807. Report received from MICHELINE Gaines.
== END 2021-01-21 20:35 | disposition home or self-care (01) ==
LOC: ANHED 01-21 01:37 → ANH3MEDSUR 01-21 01:46
PROVIDERS: Admitting Provider Surgery; Emergency Provider Emergency Medicine; PCP Physician Assistant; Visit Provider Surgery
PROC: 0FT44ZZ Resection of Gallbladder, Percutaneous Endoscopic Approach (ICD-10-PCS; CPT 47562; principal; 2021-01-21 16:30)
DX: K80.10 Calculus of gallbladder with chronic cholecystitis without obstruction (principal); I10 Essential (primary) hypertension; I47.1 Supraventricular tachycardia; F41.9 Anxiety disorder, unspecified; K58.9 Irritable bowel syndrome, unspecified; F17.210 Nicotine dependence, cigarettes, uncomplicated; K76.0 Fatty (change of) liver, not elsewhere classified
CPT/HCPCS: 47562; 36415; 74177; 76705; 80053; 81003; 83690; 85025; 86850; 86900; 86901; 88304; 96361; 96374; 96375; 96376; 99285; A9270; G0378; J0330; J1100; J1170; J1200; J2250; J2270; J2405; J2704; J2710; J3010; J7030; J7120; Q9967

== ENCOUNTER 2021-12-21 08:10 | Emergency (ER) | payer OTHER, SELFPAY ==
[2021-12-21 08:41] LABS: Basophils Percent Auto 0.6 % (0.2-1.2); Eosinophils Absolute Auto 0.2 K/mm3 (0-0.3); Eosinophils Percent Auto 2.4 % (0-4.4); Hematocrit 43.4 % (42.0-52.0); Immature Granulocyte Absolute 0.02 K/mm3 (0.00-0.031); Immature Granulocyte Percent A 0.3 % (0-0.5); Lymphocytes Absolute Auto 3.42 K/mm3 (0.9-3.2); Lymphocytes Percent Auto 48.2 % (18.3-44.2); Mean Corpuscular HGB Conc 34.6 g/dl (32-36); Mean Corpuscular Hemoglobin 29.2 pg (26-34); Mean Corpuscular Volume 84.6 fl (80-100); Mean Platelet Volume 10.3 fl (7.4-10.4); Monocytes Absolute Auto 0.6 K/mm3 (0.1-0.6); Monocytes Percent Auto 8.2 % (2.6-8.5); Neutrophils Absolute Auto 2.9 K/mm3 (1.3-6.7); Neutrophils Percent Auto 40.3 % (45.5-73.1); Platelet Count Result 194 k/mm3 (150-375); Red Blood Count 5.13 M/mm3 (4.6-6.20); Red Cell Distribution Width 13.2 % (11.5-14.5); White Blood Count 7.1 K/mm3 (4.5-10.0)
[2021-12-21 08:49] LABS: Appearance Urine Clear (Clear); Bilirubin Urine Negative (Negative); Color Urine Yellow (Yellow); Glucose Urine UA Negative (Negative); Ketones Urine Negative (Negative); Leukocyte Esterase Ur Negative LEU/UL (Negative); Nitrate Urine Negative (Negative); Protein Urine Negative (Negative); Specific Grav Ur <= 1.005 (1.001-1.035); Urobilinogen Urine 0.2 mg/dL (<2.0); pH Urine 6.5 (5.0-9.0)
[2021-12-21 08:51] LABS: Alanine Aminotransferase 102 U/L (6-50); Albumin Level 4.6 g/dL (3.5-5.1); Alkaline Phosphatase 62 U/L (38-126); Anion Gap 9 mmol/L (8-16); Aspartate Amino Transferase 61 U/L (17-59); Bilirubin,Total 0.7 mg/dL (0.2-1.3); Blood Urea Nitrogen 4 mg/dL (9-20); Calcium 9.1 mg/dL (8.4-10.2); Carbon Dioxide 26 mmol/L (22-30); Chloride 103 mmol/L (98-107); Estimated Glomerular Filt Rate > 60; Glucose 108 mg/dL (65-110); Potassium 3.9 mmol/L (3.4-5.0); Sodium 138 mmol/L (137-145)
[2021-12-21 08:52] VITALS: BP 116/77; PULSE 78; RESP 16; TEMP 36.5; O2SAT 95
[2021-12-21 08:58] LABS: Amphetamine Screen Urine Negative (Negative); Barbiturate Screen Urine Negative (Negative); Benzodiazepines Screen Urine Positive (Negative); Cannabinoid Screen Urine Negative (Negative); Cocaine Screen Urine Negative (Negative); Methadone Screen Urine Negative (Negative); Opiate Screen Urine Negative (Negative); Phencyclidine Screen Urine Negative (Negative)
[2021-12-21 08:59] LABS: Add Urine Microscopic? YES; Blood Urine Trace-Intact (Negative); RBC Urine 0-2 /hpf (0-2); Squamous Epithelial Cell Urine Rare /hpf (Few); WBC Urine 0-3 /hpf
[2021-12-21 09:17] LABS: SARS-CoV-2 RNA PCR Negative
--- NOTE | 2021-12-21 09:17 | ED.GENADULT ---
HPI - General Adult General Chief complaint: Psychiatric Symptoms <Usman Heck MD - Last Filed: 12/21/21 18:31> Stated complaint: SI, self harm <Usman Heck MD - Last Filed: 12/21/21 18:31> Time Seen by Provider: 12/21/21 08:18 <Usman Heck MD - Last Filed: 12/21/21 18:31> History of Present Illness HPI narrative: 31-year-old male presenting to the emergency department for evaluation of suicidal ideation and multiple suicide attempts. Patient states that he did drink heavily last night and this morning he attempted to kill himself with a pair of scissors. Patient did inflict a laceration to his left arm and mother states that she took the scissors from his hand before he could do further damage. Patient states a few days ago he also had a suicide attempt that was pills. Patient states at that time he took Xanax, sleeping pills and his blood pressure medication. Patient states he does not have a psychiatrist or counselor. Patient denies any prior history of psychiatric admission. <Usman Heck MD - Last Filed: 12/21/21 18:31> Related Data Allergies/adverse reactions: Allergies Allergy/AdvReac Type Severity Reaction Status Date / Time Penicillins Allergy Rash Verified 12/21/21 09:22 <Usman Heck MD - Last Filed: 12/21/21 18:31> Review of Systems Review of Systems: CONSTITUTIONAL: Denies fever, chills, or sweats. EYES: Denies visual changes, redness, or discharge. ENT: Denies rhinorrhea, congestion, sore throat, or otalgia. CARDIOVASCULAR: Denies chest pain, palpitations, or edema. RESPIRATORY: Denies cough or dyspnea. GASTROINTESTINAL: Denies abdominal pain, nausea, vomiting, or diarrhea. GENITOURINARY: Denies dysuria or hematuria. SKIN: Superficial laceration to the left arm. MUSCULOSKELETAL: Denies back pain, joint pain, or myalgia. NEUROLOGIC: Denies headache, numbness, or weakness. PSYCHIATRIC: Worsening depression suicidal ideation <Usman Heck MD - Last Filed: 12/21/21 18:31> PMFSH Past Medical History Medical History: Medical History (Updated 12/22/21 @ 01:43 by Titi Leblanc MD) Anxiety Hypertension Tachycardia <Usman Heck MD - Last Filed: 12/21/21 18:31> Social History Social History: Social History (Updated 01/16/21 @ 04:24 by Lisandra Leon MD) Substance use type: unknown Gender identity (if verbalized by the patient): Male <Usman Heck MD - Last Filed: 12/21/21 18:31> Exam Narrative: APPEARANCE: Well appearing, no pain, no distress, well-nourished. HEAD: normocephalic, atraumatic. EYES: PERRLA/EOMI, conjunctivae clear. NOSE: Normal no drainage EARS:TMS clear with good light reflex. THROAT: Pharynx clear, no exudate. NECK: Supple. No adenopathy, no masses. RESPIRATORY: Airway patent, respirations nonlabored. Clear to auscultation bilaterally, no rales, rhonchi, wheezing. CARDIOVASCULAR: Regular rate and rhythm without murmurs rubs or gallops. ABDOMINAL: Soft, nontender, nondistended, normal bowel sounds MUSCULOSKELETAL: Moves all extremities. Strength/ROM intact, No edema, No calf tenderness. NEURO: Alert. Cranial nerves II through XII intact. Grossly intact SKIN: Superficial laceration to left forearm. PSYCHIATRIC: Flat affect <Usman Heck MD - Last Filed: 12/21/21 18:31> Course Course Emergency Course: Patient is medically cleared to be evaluated by the crisis counselor and is suitable for inpatient psychiatric treatment. Patient was evaluated crisis counselor and agreed for voluntary placement. At this time placement is pending. <Usman Heck MD - Last Filed: 12/21/21 18:31> Patient is medically cleared to be evaluated by the crisis counselor and is suitable for inpatient psychiatric treatment. Patient was evaluated crisis counselor and agreed for voluntary placement. At this time placement is pending. After being in the emergency department for multiple hours t
[2021-12-21 09:36] LABS: Ethanol 171 mg/dL (<10)
[2021-12-21] MEDS: SODIUM CHLORIDE 0.9% IV 1,000 ML 999 ML IV CONT (09:42)
[2021-12-21] MEDS: KETOROLAC 15 MG/ML VIAL (*BKC) IV PUSH (09:43)
[2021-12-21] MEDS: LORazepam INJ (*CRX) 2 MG/ML VIAL 0.5 MG IV PUSH (10:03)
[2021-12-21 12:13] LABS: Ethanol 86 mg/dL (<10)
[2021-12-21] MEDS: LORazepam (*CRX) 1 MG TABLET PO (16:02)
--- NOTE | 2021-12-21 21:38 | PC.NURSE ---
Pt requested to speak with this RN. Reports that he is not suicidal or homicidal, and instead of being voluntarily admitted, would like to go home. ED MD Leblanc notified, and this RN placed call to Crisis aircraft inspector to reevaluate pt. Reports will send public health outreach worker to ED.
--- NOTE | 2021-12-21 23:13 | PC.NURSE ---
Crisis has been contacted. Currently on their way. Pt states they want to go home, updated pt on the next steps in the process. Pt also states they want more ativan, but informed the pt they cannot have any until after crisis evaluates them per EDP Dr. Leblanc.
--- NOTE | 2021-12-21 23:13 | PC.NURSE ---
This RN called crisis line again, who reports that director medical science is on way to reevaluate pt.
--- NOTE | 2021-12-22 00:13 | PC.NURSE ---
Crisis service support representative has still not arrived at this time. Were called earlier and told they were still on their way.
--- NOTE | 2021-12-22 00:38 | PC.NURSE ---
Called crisis for 3rd time. [employer] rep apologizes for delay and reports he will send customer contact sales associate out for pt.
--- NOTE | 2021-12-22 01:43 | PC.NURSE ---
Per Crisis senior human resources representative the patient is going to be sent home on a safety contract. The plan was agreed upon by EDP Dr. Leblanc.
[2021-12-22 02:01] VITALS: BP 162/101; PULSE 71; RESP 16; TEMP 36.7; O2SAT 98
== END 2021-12-22 01:58 | disposition home or self-care (01) ==
PROVIDERS: Emergency Medicine; Emergency Provider Emergency Medicine; PCP Physician Assistant
DX: F32.A Depression, unspecified (principal); Z20.822 Contact with and (suspected) exposure to COVID-19
CPT/HCPCS: 36415; 80053; 80307; 81001; 84443; 85025; 96361; 96374; 96375; 99284; A9270; C9803; J1885; J2060; J7030; U0003; U0005

== ENCOUNTER 2023-01-24 17:06 | Emergency (ER) | payer SELFPAY ==
[2023-01-24 17:10] VITALS: BP 138/85; PULSE 85; RESP 16; TEMP 36.4; O2SAT 98
--- NOTE | 2023-01-24 19:06 | ED.URI ---
HPI - URI/Sore Throat General Chief Complaint: Upper Respiratory Infection Stated Complaint: sick for 6 weeks Time Seen by Provider: 01/24/23 17:55 Source: patient Mode of arrival: ambulatory Limitations: no limitations History of Present Illness HPI Narrative: patient is a pleasant 32 yo male with a past medical history of who presents to the ED today ambulatory for evaluation of sinus congestion, congested cough, trouble hearing, fluids in his ears. he has been on 2 rounds of steroids. He states sometimes he has wheezing and then he coughs and it stops. He states that he has been dealing with these symptoms for over a month now. He denies chest pain or shortness of breath. denies sore throat. HE has been doing Mucinex, psuedophed. Denies taking any daily allergy medications. denies any GI symptoms. denies fever or chills. Related Data Home Medications Medication Instructions Recorded Confirmed fluoxetine 40 mg capsule mg 01/15/21 02/09/21 metoprolol tartrate 100 mg tablet 01/15/21 02/09/21 acetaminophen 500 mg capsule 500 mg PO Q6H PRN pain 01/21/21 02/09/21 alprazolam 0.5 mg tablet (Xanax) 0.5 mg PO .COMPLEX 01/21/21 02/09/21 buspirone 10 mg tablet 10 mg PO BID 01/21/21 02/09/21 lisinopril 5 mg tablet 5 mg PO DAILY 01/21/21 02/09/21 loperamide 2 mg capsule 2 mg PO QID PRN diarrhea 01/21/21 02/09/21 tramadol 50 mg tablet (Ultram) 50 mg PO Q8H PRN pain 01/21/21 02/09/21 trazodone 50 mg tablet 50 mg PO HS 01/21/21 02/09/21 Allergies Allergy/AdvReac Type Severity Reaction Status Date / Time Cephalosporins Allergy Mild Unknown Verified 01/24/23 17:09 cefadroxil Allergy Unknown Skin Verified 01/24/23 17:09 Reaction Penicillins Allergy Rash Verified 01/24/23 17:09 Review of Systems Review of Systems: CONSTITUTIONAL: Denies fever, chills, or sweats. EYES: Denies visual changes, redness, or discharge. ENT: +sinus congestion, ear fluid/pressure and difficulty hearing, scratchy throat. CARDIOVASCULAR: Denies chest pain, palpitations, or edema. RESPIRATORY: denies dyspnea. Wheezing, cough, and congestion. GASTROINTESTINAL: Denies abdominal pain, nausea, vomiting, or diarrhea. GENITOURINARY: Denies dysuria or hematuria. SKIN: Denies rash or itching. MUSCULOSKELETAL: Denies back pain, joint pain, or myalgia. NEUROLOGIC: Denies headache, numbness, or weakness. PSYCHIATRIC: Denies anxiety or depression. All systems reviewed & are unremarkable except as noted in HPI and below PMFSH Past Medical History Medical History Acute calculous cholecystitis Anxiety Anxiety Anxiety Anxiety Anxiety Anxiety BMI 34.0-34.9,adult Bronchitis Exercise-induced asthma HTN (hypertension) Hypercholesterolemia Hypertension Hypertension Hypertension Hypertension Hypertension IBS (irritable bowel syndrome) Migraines SVT (supraventricular tachycardia) Tachycardia Tachycardia Tachycardia Tachycardia Tachycardia Tobacco use Surgical History Surgical History H/O hernia repair Hx laparoscopic cholecystectomy 01/21/21 Hx of tonsillectomy Family History Family History Grandparent Depression Mother Depression Hypertension Social History Social History Smoking status: Current every day smoker Tobacco type: cigarettes Second hand tobacco smoke exposure: No Alcohol intake: current Drinks per week: 1 Substance use: never Substance use type: unknown Gender identity (if verbalized by the patient): Male Sexual Orientation (if Verbalized by the Patient): Straight or Heterosexual Spiritual care concerns: No Exam Narrative: GENERAL: Well-appearing, well-nourished, obese male sitting up on exam chair, and in no acute distress. HEAD: Normocephalic, atraumatic. EYES: PERRLA and EOMI. ENT: bilateral ear fluid level noted with right TM erythema
== END 2023-01-24 19:37 | disposition home or self-care (01) ==
PROVIDERS: Emergency Provider Nurse Practitioner; PCP Physician Assistant
DX: H66.001 Acute suppurative otitis media without spontaneous rupture of ear drum, right ear (principal); H93.8X3 Other specified disorders of ear, bilateral; H91.8X3 Other specified hearing loss, bilateral; R09.81 Nasal congestion; I10 Essential (primary) hypertension; E78.00 Pure hypercholesterolemia, unspecified; J45.990 Exercise induced bronchospasm; K58.9 Irritable bowel syndrome, unspecified; F17.210 Nicotine dependence, cigarettes, uncomplicated; F41.9 Anxiety disorder, unspecified; Z90.49 Acquired absence of other specified parts of digestive tract
CPT/HCPCS: 99283

== ENCOUNTER 2025-02-11 17:57 | Emergency (ER) | payer OTHER, SELFPAY ==
--- OUTSIDE RECORDS SUMMARY | 2024-11-16 08:00 | XMS_ITS ---
Author Organization [facility] Address [address] [address] Care Team Providers Care Material Lister Name Role Phone Artur Mix Unavailable [phone] REASON FOR VISIT 4 month f/u Social History Sex Assigned At : Social History Observation Description Sex Assigned At Male Encounters Encounter Location Date Provider Diagnosis [facility] [place] [id number] [address] 11/16/2024 Artur Mix Plan Of Treatment No Information Progress Notes * GAIL HUNTER TDOB:1989 (34 yo M)Acc No.[id number]:11/16/2024 Patient: Iesha GAIL ISIDRO K[place]on Provider: Mechelle MIX MD :1990 A ge:34 Y S ex:Male Date:11/16/2024 Address:[address], [facility] Subjective: * Chief Complaints: * 4 month f/u * Active Problem List F31.81 Bipolar II disorder Modified On:02/02/2024/U Status:confirmed F41.1 Generalized anxiety disorder Modified On:02/02/2024U Status:confirmed F51.01 Primary insomnia Modified On:02/02/2024U Status:confirmed F41.1 DAVEY (generalized anx iety disorder) Modified On:03/16/2024U Status:confirmed I10 Essential hypertensi on Modified On:07/21/2024W/U Status:confirmed * Electronic signature of Izabel Mix MD on 02/11/2025 at 05:59 PM CDT Sign off status: Pending * Provider: Mechelle MIX MD Date: 0 11/16/2024 Generated for Callie adam/Jeb/Steffismitting on: 0 02/11/2025 05:59 PM CDT
--- NOTE | ~2025-02-11 | XR_ITS ---
EXAMINATION: XR chest 1V, 02/11/2025 19:25 CDT HISTORY: URI COMPARISON: No comparisons available. Technique: Single view. Findings: The lungs are clear, no effusion. No pneumothorax. Heart is normal size. Mediastinal and hilar contours are within normal limits. Bony thorax no acute abnormality. Impression: No acute cardiopulmonary abnormality. Reviewed, dictated and finalized at location A. Impression: No acute cardiopulmonary abnormality.
[2025-02-11 17:59] VITALS: BP 146/96; PULSE 82; RESP 18; TEMP 36.6; O2SAT 98
--- OUTSIDE RECORDS SUMMARY | 2025-02-11 17:59 | XMS_ITS | Clinical Summary ---
Author Organization [facility] Address [facility] [place] [address] Care Team Providers Care Dairy Science Teacher Name Role Phone Iesha Glasgow MD Primary Care Provider [phone] Social History Tobacco Use Types Packs/Day Years Used Date Smoking Tobacco: Never Assessed Personal Safety Answer Date Recorded Getting School Help Needed Not on file 08/08 Sex and Gender Information Value Date Recorded Sex Assigned at Not on file Legal Sex Male 3:20 PM CDT Gender Identity Not on file Sexual Orientation Not on file Plan of Treatment Not on file Care Teams Dairy Science Teacher Relationship Specialty Start Date End Date Iesha Glasgow MD [address] [place] [id number] PCP - General Family Medicine 09/21/17
--- OUTSIDE RECORDS SUMMARY | 2025-02-11 17:59 | XMS_ITS | Clinical Summary ---
Author Organization [facility] Address [address] [place]: Epic Prelude ADT [place] [address] Care Team Providers Care Client Development Consultant Name Role Phone Unavailable Primary Care Provider Unavailabl e Allergies Active Allergy Reactions Criticality Noted Date Comments Penicillins Rash Low 01/11/2023 Medications omeprazole (PriLOSEC) 40 mg Capsule, Delayed Release(E.C.) Take 1 Capsule (40 mg) by mouth daily. NEEDS APPOINTMENT BEFORE NEXT REFILL. 90 Capsule 11/11/2021 1:25 PM CDT 2 Active omeprazole (PriLOSEC) 40 mg Capsule, Delayed Release(E.C.) Take 1 Capsule (40 mg) by mouth daily. Needs appointment before next fill. 90 Capsule 04/14/2022 3:49 PM [employer] 2 Active ALPRAZolam (XANAX) 0.5 mg tablet Take 1 Tablet (0.5 mg) by mouth every 12 hours as needed for anxiety. 60 Tablet 11/11/2021 1:25 PM CDT 2 Active clindamycin HCL (CLEOCIN) 300 mg Capsule Take 1 Capsule (300 mg) by mouth 3 times daily until gone. 30 Capsule 1 11/26/2021 4:18 PM CDT 2 Active ALPRAZolam (XANAX) 0.5 mg tablet TAKE ONE TABLET BY MOUTH EVERY 12 HOURS NEEDED FOR ANXIETY 60 Tablet 12/12/2021 5:41 PM CDT 2 Active busPIRone (BUSPAR) 10 mg tablet TAKE 1 TABLET BY MOUTH TWO TIMES A DAY 60 Tablet 2 04/28/2022 9:45 AM [employer] 2 Active omeprazole (PriLOSEC) 40 mg Capsule, Delayed Release(E.C.) TAKE ONE CAPSULE BY MOUTH ONCE DAILY 90 Capsule 03/04/2022 5:22 PM CDT 2 Active busPIRone (BUSPAR) 30 mg Tablet Take 1 Tablet (30 mg) by mouth 2 times daily. 60 Tablet 01/05/2022 7:17 PM CDT 2 Active traZODone (DESYREL) 50 mg tablet Take 1 Tablet (50 mg) by mouth daily at bedtime. 90 Tablet 1 01/05/2022 7:17 PM CDT 2 Active traMADoL (ULTRAM) 50 mg tablet TAKE ONE TABLET BY MOUTH EVERY 8 HOURS NEEDED 90 Tablet 02/20/2022 5:45 PM CDT 2 Active QUEtiapine (SEROquel) 50 mg tablet TAKE 1 TABLET BY MOUTH AT BEDTIME FOR 2 DAYS, THEN TAKE 2 TABLETS AT BEDTIME THEREAFTER. 60 Tablet 01/28/2022 7:46 PM CDT 2 Active busPIRone (BUSPAR) 15 mg Tablet Take 1 Tablet (15 mg) by mouth 3 times daily. 90 Tablet 02/02/2022 3:16 PM CDT 2 Active ALPRAZolam (XANAX) 0.5 mg tablet Take 1 Tablet (0.5 mg) by mouth every 12 hours as needed for anxiety. 14 Tablet 02/11/2022 4:45 PM CDT 2 Active busPIRone (BUSPAR) 10 mg tablet Take 1 Tablet (10 mg) by mouth 2 times daily. 60 Tablet 02/20/2022 5:45 PM CDT 2 Active ALPRAZolam (XANAX) 0.5 mg tablet Take 1 Tablet (0.5 mg) by mouth every 12 hours as needed for anxiety 14 Tablet 03/04/2022 5:22 PM CDT 2 Active FLUoxetine (PROzac) 20 mg capsule Take 1 Capsule (20 mg) by mouth daily. 30 Capsule 04/02/2022 4:49 PM CDT 2 Active FLUoxetine (PROzac) 20 mg capsule Take 1 Capsule (20 mg) by mouth daily. 30 Capsule 2 Active busPIRone (BUSPAR) 10 mg tablet Take 1 Tablet (10 mg) by mouth 2 times daily. 60 Tablet 2 Active FLUoxetine (PROzac) 20 mg capsule Take 1 Capsule (20 mg) by mouth daily. 30 Capsule 04/28/2022 9:45 AM [employer] 2 Active ALPRAZolam (XANAX) 0.5 mg tablet Take 1 Tablet (0.5 mg) by mouth every 12 hours as needed for anxiety. 14 Tablet 05/19/2022 7:02 PM [employer] 2 Active ALPRAZolam (XANAX) 0.5 mg tablet Take 1 Tablet (0.5 mg) by mouth every 12 hours as needed for anxiety. 14 Tablet 06/16/2022 3:38 PM [employer] 3 Active QUEtiapine (SEROquel) 100 mg tablet Take 1 Tablet (100 mg) by mouth daily at bedtime. 30 Tablet 4 11/05/2022 10:34 AM CDT 3 Active ALPRAZolam (XANAX) 0.5 mg tablet Take 1 Tablet (0.5 mg) by mouth 1 time daily as needed. TO LAST 30 DAYS. 30 Tablet 2 10/06/2022 4:56 PM CDT 3 Active lisinopriL (PRINIVIL) 20 mg tablet Take 1 Tablet (20 mg) by mouth daily. 90 Tablet 1 02/02/2023 4:45 PM CDT 3 Active QUEtiapine (SEROquel) 100 mg tablet Take 1 Tablet (100 mg) by mouth daily at bedtime. 30 Tablet 12/04/2022 4:16 PM CDT 3 Active omeprazole (PriLOSEC) 40 mg Capsule, Delayed Release(E.C.) TAKE ONE CAPSULE BY MOUTH ONCE DAILY. NEEDS APPOINTMENT BEFORE NEXT REFILL 90 Capsule 02/02/2023 4:45 PM CDT 3 Active busPIRone (BUSPAR) 10 mg tablet Take 1 Tablet (10 mg) by mouth 2 times daily. 60 Tablet 5 03/21/2023 2:02 PM CDT 3 Active FLUoxetine (PROzac) 20 mg capsule Take 1 Capsule (20 mg) by mouth daily.PT WILL NEED TO MAKE A FOLLOW UP APPT FOR FURTHER REFILLS 30 Capsule 3 Active QUEtiapine (SEROquel) 100 mg tablet Take 1 Tablet (100 mg) by mouth daily at bedtime.PT WILL NEED TO MAKE AN APPT FOR FURTHER REFILLS 30 Tablet 3 Active ALPRAZolam (XANAX) 0.5 mg tablet Take 1 Tablet (0.5 mg) by mouth once daily as needed. 30 Tablet 2 02/02/2023 4:45 PM CDT 3 Active QUEtiapine (SEROquel) 100 mg tablet Take 1 Tablet (100 mg) by mouth daily at bedtime. 30 Tablet 2 03/10/2023 10:52 AM CDT 3 Active metoprolol succinate (TOPROL XL) 100 mg Extended Release 24 hour tablet Take 1 Tablet (100 mg) by mouth daily. 90 Tablet 4 12/30/2022 4:18 PM CDT 3 Active cetirizine (ZyrTEC) 10 mg tablet Take 1 Tablet (10 mg) by mouth daily. 30 Tablet 01/28/2023 6:33 PM CDT 3 Active fluticasone propionate (FLONASE) 50 mcg/spray [place], Suspension nasal inhaler Administer 1 spray in each nostril twice daily. 16 Gram 01/28/2023 6:33 PM CDT 3 Active omeprazole (PriLOSEC) 40 mg Capsule, Delayed Release(E.C.) Take 1 Capsule (40 mg) by mouth daily. 90 Capsule 1 3 Active benzonatate (TESSALON) 200 mg capsule Take 1 Capsule (200 mg) by mouth 3 times daily as needed. 90 Capsule 02/12/2023 4:30 PM CDT 3 Active buPROPion HCL (WELLBUTRIN XL) 150 mg Extended Release 24 hour tablet Take 1 Tablet (150 mg) by mouth daily. 30 Tablet 03/10/2023 10:52 AM CDT 3 Active eszopiclone (LUNESTA) 3 mg Tablet TAKE ONE TABLET BY MOUTH ONCE DAILY 30 Tablet 03/10/2023 10:52 AM CDT 3 Active eszopiclone (LUNESTA) 3 mg Tablet Take 1 Tablet (3 mg) by mouth daily. 30 Tablet 04/09/2023 4:26 PM CDT 3 Active Social History Tobacco Use Types Packs/Day Years Used Date Smoking Tobacco: Never Assessed Sex and Gender Information Value Date Recorded Sex Assigned at Not on file Legal Sex Male 3:27 PM CDT Gender Identity Not on file Sexual Orientation Not on file Plan of Treatment Health Maintenance Due Date Last Done Comments DTAP/TDAP/TD VACCINES (1 - Tdap) 2009 HEPATITIS B VACCINES (1 of 3 - 19+ 3-dose series) 02/06 HPV VACCINES (1 - 3-dose SCDM series) 2017 INFLUENZA VACCINE (#1) 2025 Insurance RX [employer] (INTERNAL) [facility] [employer]
--- OUTSIDE RECORDS SUMMARY | 2025-02-11 18:00 | XMS_ITS | Patient Health Record ---
Author Organization [facility] [employer] Address [address] [facility] [address] [place] [address] Care Team Providers Care Silversmith Apprentice Name Role Phone Artur Kaye Unavailable [phone] Loni Haas Unavailable [phone] Allergies Allergen (clinical drug ingredient) Drug/Non Drug Allergy documented on EMR Reaction Allergy Type Onset Date Status Substance with penicillin structure and antibacterial mechanism of action (substance) Penicillins Unknown Drug Allergy 10/07/2023 Active Results Component Value Reference Range Notes UDT Reviewed date:03/16/2024 01:34:35 PM Interpretation: Performing Lab: Notes/Report: THC N 0 - 50 ng/ml Cocaine N 0 - 300 ng/ml Amphetamine N 0 - 1000 ng/ml Buprenorphine (BUP) N 0 - 10 ng/ml Secobarbital (Bar) N 0 - 300 ng/ml Oxazepam (BZO) P 0 - 300 ng/ml 9-ipxonbvpdf-2,8-xkbwngzt-0,3-diphenylpyrrolidine (CATALINO P) N 0 - 300 ng/ml Methamphetamine (MET) N 0 - 1000 ng/ml Methylenedioxymethamphetamine (MDMA) N 0 - 500 ng/ml Morphine (MOP 300/TRZ4691) N 0 - 300 ng/ml Methadone (MTD) N 0 - 300 ng/ml Phencyclidine (PCP) N 0 - 25 ng/ml Nortriptyline (TCA) N 0 - 1000 ng/ml Oxycodone N 0 - 300 ng/ml x N 0 - 300 ng/ml UDT Reviewed date:01/19/2025 04:04:13 PM Interpretation: Performing Lab: Notes/Report: THC n 0 - 50 ng/ml Cocaine n 0 - 300 ng/ml Amphetamine n 0 - 1000 ng/ml Buprenorphine (BUP) n 0 - 10 ng/ml Secobarbital (Bar) n 0 - 300 ng/ml Oxazepam (BZO) p 0 - 300 ng/ml 5-illokkjhja-1,1-muhyttxi-6,3-diphenylpyrrolidine (CATALINO P) n 0 - 300 ng/ml Methamphetamine (MET) n 0 - 1000 ng/ml Methylenedioxymethamphetamine (MDMA) n 0 - 500 ng/ml Morphine (MOP 300/NBC3006) n 0 - 300 ng/ml Methadone (MTD) n 0 - 300 ng/ml Phencyclidine (PCP) n 0 - 25 ng/ml Nortriptyline (TCA) n 0 - 1000 ng/ml Oxycodone n 0 - 300 ng/ml UDT Reviewed date:07/21/2024 11:55:38 AM Interpretation: Performing Lab: Notes/Report: THC N 0 - 50 ng/ml Cocaine N 0 - 300 ng/ml Amphetamine N 0 - 1000 ng/ml Buprenorphine (BUP) N 0 - 10 ng/ml Secobarbital (Bar) N 0 - 300 ng/ml Oxazepam (BZO) P 0 - 300 ng/ml 7-ggbjoznstf-6,6-wvruucci-9,3-diphenylpyrrolidine (CATALINO P) N 0 - 300 ng/ml Methamphetamine (MET) N 0 - 1000 ng/ml Methylenedioxymethamphetamine (MDMA) N 0 - 500 ng/ml Morphine (MOP 300/AXE4008) N 0 - 300 ng/ml Methadone (MTD) N 0 - 300 ng/ml Phencyclidine (PCP) N 0 - 25 ng/ml Nortriptyline (TCA) N 0 - 1000 ng/ml Oxycodone N 0 - 300 ng/ml x N 0 - 300 ng/ml Reason For Referral No Information Medications Medication SIG (Take, Route, Frequency, Duration) Notes Start Date End Date Status busPIRone HCl 10 mg Tablet 1 tablet orally twice a day; Duration: 30 days Active QUEtiapine Fumarate 100 MG Tablet 1 tablet at bedtime Oral Once a day; Duration: 30 days Active Eszopiclone 3 mg Tablet 1 tablet at bedt katie orally daily; Duration: 30 days 01/19/2025 06/17/2025 Active FLUoxetine HCl 20 mg Capsule TAKE 1 CAPSULE BY MOUTH DAILY; Duration: 30 Active QUEtiapine Fumarate 100 mg Tablet TAKE 1 TABLET BY MOUTH AT BEDTIME; Duration: 30 Active buPROPion HCl ER (XL) 150 mg Tablet Extended Release 24 Hour TAKE 1 TABLET BY MOUTH EVERY MORNING; Duration: 30 Active ALPRAZolam 0.5 mg Tablet TAKE 1 TABLET B Y MOUTH DAILY; Duration: 30 07/05/2024 Not-Taking buPROPion HCl ER (XL) 150 MG Tablet Extended Release 24 Hour 1 tablet in the morning Orally Once a day; Duration: 30 days Active Metoprolol Succinate ER 100 MG Tablet Extended Release 24 Hour Oral 10/07/2023 Active Benzonatate 200 MG Capsule Oral 10/07/2023 Active ALPRAZolam 0.5 MG Tablet 1 tablet Oral o nce a day; Duration: 30 days 01/19/2025 Active Omeprazole 40 MG Capsule Delayed Release Oral 10/07/2023 Active FLUoxetine HCl 20 MG Capsule 1 capsule Orally Once a day; Duration: 30 days Active Lisinopril 20 MG Tablet Oral 10/07/2023 Active Immunizations Vaccine Route Administration Date Status Comme nts Pfizer Biontech Covid-19 Vac cine 2nd dose Unknown 09/05/2020 Administered Pfizer Biontech Covid-19 Vac cine 2nd dose Unknown 09/26/2020 Administered Social History Tobacco Use: Social History Observation Description Date Details (start date - stop date) Current Smoker NA - NA Sex Assigned At : Social History Observation Description Sex Assigned At Male Social History Miscellaneous: Social Info Question Answer Notes Advance Care Planning Are you your own decision-maker Yes Do you have Power of State Wildlife Officer for Health or [facility]? No Tobacco Use: Social Info Question Answer Notes Tobacco Control (Standard) Tobacco use: Current smoker Additional Details Category Social Info Options Details Migrated Social History Migrated Social History Alcohol Intake: Moderate 01/21/2022,Tobacco Years: Current every day smoker 01/21/2022,Smoking Status: 17 04/01/2023 Section Notes: Occupation: Works At [employer] Weekends Caffeine intake: Late In The Day Alcohol use: Uses Alcohol To Manage Anxiety Problems Problem Type SNOMED Code ICD Code Onset Dates Problem Status W/U Status Risk Notes Problem Bipolar II disorder (10818007) Bipolar II disorder (F31.81) Active confirmed Problem Generalized anxiety disorder (15736984) Generalized anxiety disorder (F41.1) Active confirmed Problem Primary insomnia (1205598) Primary insomnia (F51.01) Active confirmed Problem Generalized anxiety disorder (45474305) DAVEY (generalized anxiety disorder) (F41.1) Active confirmed Problem Essential hypertension (45313403) Essential hypertension (I10) Active confirmed Vital Signs Heart Rate 78 /min 01/19/2025 Height-cm 177.80 cm 01/19/2025 Blood pressure diastolic 78 mm Hg 01/19/2025 Weight-kg 129.73 kg 01/19/2025 Height 70.00 in 01/19/2025 Blood pressure systolic 148 mm Hg 01/19/2025 Weight 286.0 lbs 01/19/2025 BMI 41.03 kg/m2 01/19/2025 Encounters Encounter Location Date [facility] [place] [address] [facility] [address] [address] 02/17/2024 Artur [facility] [place] [address] [facility] [address] [place] [address] 03/16/2024 Artur Mikki Bipolar II disorder F31.81 ; Primary insomnia F51.01 and DAVEY (generalized anxiety disorder) F41.1 [facility] [place] [address] [address] 07/21/2024 Artur Mikki Bipolar II disorder F31.81 ; Primary insomnia F51.01 ; DAVEY (generalized anxiety disorder) F41.1 and Essential hypertension I10 [facility] [place] [address] [address] 01/03/2025 [place] [address] [facility] [address] [place] [address] 01/19/2025 Artur Mikki Bipolar II disorder F31.81 ; Primary insomnia F51.01 ; DAVEY (generalized anxiety disorder) F41.1 and Essential hypertension I10 [facility] [place] [address] [facility] [address] [place] [address] 01/19/2025 Artur Mikki [facility] [place] [address] [facility] [address] [place] [address] 03/07/2024 Artur Mikki Bipolar II disorder F31.81 and Generalized anxiety disorder F41.1 [facility] [address] [place] [address] [place] [address] 03/09/2024 Artur Mikki Generalized anxiety disorder F41.1 and Primary insomnia F51.01 [facility] [address] [place] [address] [place] [address] 03/13/2024 Artur Mikki [facility] [address] [facility] [address] [place] [address] 07/05/2024 Artur Mikki [facility] [address] [place] [address] [place] [address] 07/31/2024 Artur Mikki DAVEY (generalized anxiety disorder) F41.1 [facility] [address] [facility] [address] [place] [address] 10/24/2024 Artur Mikki Primary insomnia F51.01 ; Bipolar II disorder F31.81 and DAVEY (generalized anxiety disorder) F41.1 [place] [address] [facility] [address] [place] [address] 12/19/2024 Loni Haas Primary insomnia F51.01 Assessments Encounter Date Diagnosis (ICD Code) Assessment Notes Treatment Notes Treatment Clinical Notes Section Notes 03/07/2024 Bipolar II disorder (ICD-10 - F31.81) 03/16/2024 Bipolar II disorder (ICD-10 - F31.81) Anhedonia and Depressive Symptoms - Assessment: Patient reported a resolved three-week period of anhedonia, low energy, and low motivation. Currently on bupropion, fluoxetine, quetiapine, and buspirone for mood stabilization. - Plan: - Continue current medications - Monitor for any recurrence of depressive symptoms - Schedule follow-up appointment in four months to assess progress Insomnia - Assessment: Patient is prescribed Lunesta for sleep difficulties. - Plan: - Continue Lunesta as needed - Encourage good sleep hygiene practices Anxiety - Assessment: Patient is prescribed alprazolam and buspirone for anxiety management. - Plan: - Continue current medications - Monitor for any changes in anxiety levels, especially with the new job starting High Blood Pressure - Assessment: Patient reports having high blood pressure. 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 - Plan: - Instruct the patient to drop off the necessary paperwork and a letter explaining their situation for the physician to review and complete Prescription Refills and Insurance - Assessment: Patient will have new health insurance starting next week and needs refills for Lunesta and alprazolam. Currently uses [facility]. 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 Plans to resume master's degree studies next semester. - Plan: - Monitor patient's stress levels and ability to manage new responsibilities - Provide support and guidance as needed during this transition period 03/07/2024 Generalized anxiety disorder (ICD-10 - F41.1) 03/09/2024 Generalized anxiety disorder (ICD-10 - F41.1) 07/21/2024 Bipolar II disorder (ICD-10 - F31.81) 07/31/2024 DAVEY (generalized anxiety disorder) (ICD-10 - F41.1) 10/24/2024 Primary insomnia (ICD-10 - F51.01) 12/19/2024 Primary insomnia (ICD-10 - F51.01) 01/19/2025 Bipolar II disorder (ICD-10 - F31.81) Stable mood with no manic episodes. Patient reports feeling well overall. Current medication regimen effective. - Refill Bupropion XL 150 mg, 90-day supply with 4 refills - Refill Fluoxetine 20 mg, 90-day supply with 4 refills - Refill Topiramate 100 mg, 90-day supply with 4 refills - Refill Xanax 0.5 mg, 30-day supply with 4 refills 01/19/2025 Primary insomnia (ICD-10 - F51.01) 10/24/2024 Bipolar II disorder (ICD-10 - F31.81) 07/21/2024 Primary insomnia (ICD-10 - F51.01) 03/09/2024 Primary insomnia (ICD-10 - F51.01) 03/16/2024 Primary insomnia (ICD-10 - F51.01) Anhedonia and Depressive Symptoms - Assessment: Patient reported a resolved three-week period of anhedonia, low energy, and low motivation. Currently on bupropion, fluoxetine, quetiapine, and buspirone for mood stabilization. - Plan: - Continue current medications - Monitor for any recurrence of depressive symptoms - Schedule follow-up appointment in four months to assess progress Insomnia - Assessment: Patient is prescribed Lunesta for sleep difficulties. - Plan: - Continue Lunesta as needed - Encourage good sleep hygiene practices Anxiety - Assessment: Patient is prescribed alprazolam and buspirone for anxiety management. - Plan: - Continue current medications - Monitor for any changes in anxiety levels, especially with the new job starting High Blood Pressure - Assessment: Patient reports having high blood pressure. 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 - Plan: - Instruct the patient to drop off the necessary paperwork and a letter explaining their situation for the physician to review and complete Prescription Refills and Insurance - Assessment: Patient will have new health insurance starting next week and needs refills for Lunesta and alprazolam. Currently uses [facility]. 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 Plans to resume master's degree studies next semester. - Plan: - Monitor patient's stress levels and ability to manage new responsibilities - Provide support and guidance as needed during this transition period 07/21/2024 DAVEY (generalized anxiety disorder) (ICD-10 - F41.1) 10/24/2024 DAVEY (generalized anxiety disorder) (ICD-10 - F41.1) 01/19/2025 DAVEY (generalized anxiety disorder) (ICD-10 - F41.1) Anxiety stable with no panic attacks. Patient occasionally uses alcohol to manage anxiety. 01/19/2025 Essential hypertension (ICD-10 - I10) Blood pressure stable. 07/21/2024 Essential hypertension (ICD-10 - I10) 03/16/2024 DAVEY (generalized anxiety disorder) (ICD-10 - F41.1) Anhedonia and Depressive Symptoms - Assessment: Patient reported a resolved three-week period of anhedonia, low energy, and low motivation. Currently on bupropion, fluoxetine, quetiapine, and buspirone for mood stabilization. - Plan: - Continue current medications - Monitor for any recurrence of depressive symptoms - Schedule follow-up appointment in four months to assess progress Insomnia - Assessment: Patient is prescribed Lunesta for sleep difficulties. - Plan: - Continue Lunesta as needed - Encourage good sleep hygiene practices Anxiety - Assessment: Patient is prescribed alprazolam and buspirone for anxiety management. - Plan: - Continue current medications - Monitor for any changes in anxiety levels, especially with the new job starting High Blood Pressure - Assessment: Patient reports having high blood pressure. 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 - Plan: - Instruct the patient to drop off the necessary paperwork and a letter explaining their situation for the physician to review and complete Prescription Refills and Insurance - Assessment: Patient will have new health insurance starting next week and needs refills for Lunesta and alprazolam. Currently uses [facility]. 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 Plans to resume master's degree studies next semester. - Plan: - Monitor patient's stress levels and ability to manage new responsibilities - Provide support and guidance as needed during this transition period 07/21/2024 Other Depression and Anxiety - Assessment: Patient reports occasional down days but overall manageable mood. Recent traumatic event (friend's murder) may have temporarily exacerbated symptoms. 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 - Plan: - Continue current medications: bupropion 150 mg in the morning, fluoxetine 20 mg, clonazepam 100 mg at bedtime, and Xanax 0.5 mg once a day for anxiety. - Patient to switch bupropion to morning dosing as prescribed. - Maintain 4-month follow-up appointments. - Consider discussing coping strategies for managing work stress and emotional impact of recent events. Insomnia - Assessment: Patient reports eszopiclone (Lunesta) is not working. Possible contributing factor: taking bupropion at night instead of the morning. - Plan: - Patient to switch bupropion to morning dosing as prescribed. - Monitor sleep improvement at the next follow-up appointment. Elevated Blood Pressure - Assessment: Blood pressure measured at 140/92. Patient has a history of high blood pressure and is on metoprolol. Patient recently reintroduced caffeine into their diet. - Plan: - Continue metoprolol as prescribed. - Encourage patient to monitor caffeine intake and consider reducing it if blood pressure remains elevated. - Recheck blood pressure at the next follow-up appointment. Medication Refills - Assessment: Patient recently filled a 30-day supply of medications. Patient needs to see the provider before the next refill. - Plan: - Send a prescription for Xanax with 3 refills and a 90-day supply for other medications. - Continue 4-month follow-up appointments. Alcohol Consumption - Assessment: Patient reports reduced alcohol consumption due to work commitments. - Plan: - Continue to monitor alcohol intake and encourage moderation. Plan Of Treatment No Information Insurance Providers Payer Name Payer Address Payer Phone Subscriber Number Group Number Insured Name Patient Relationship to Insured Coverage Start Date [facility]age End Date [facility] [address] [place] [phone] [id number] GAIL HUNTER Self - patient is the insured 5 Medical (General) History Medical History History ICD Code Problems: Alcohol abuse Alcohol dependence Bipolar II disorder Body mass index 30+ - obesity Generalized anxiety disorder Primary insomnia , Surgical History Surgery Date(Month/Year) Removal of gallbladder (13912)
--- OUTSIDE RECORDS SUMMARY | 2025-02-11 19:57 | XMS_ITS | Clinical Summary ---
Author Organization [facility] Address [address] [place] [address] Care Team Providers Care Supervisory Geographer Name Role Phone Iesha Glasgow MD Primary Care Provider [phone] Social History Tobacco Use Types Packs/Day Years Used Date Smoking Tobacco: Never Assessed Personal Safety Answer Date Recorded Getting School Help Needed Not on file 08/08 Sex and Gender Information Value Date Recorded Sex Assigned at Not on file Legal Sex Male 3:20 PM CDT Gender Identity Not on file Sexual Orientation Not on file Plan of Treatment Not on file Care Teams Supervisory Geographer Relationship Specialty Start Date End Date Iesha Glasgow MD [address] [place] [id number] PCP - General Family Medicine 09/21/17
--- OUTSIDE RECORDS SUMMARY | 2025-02-11 19:57 | XMS_ITS | Clinical Summary ---
Author Organization [facility] Address [address] [place]: Epic Prelude ADT [place] [address] Care Team Providers Care Computer Systems Architect Name Role Phone Unavailable Primary Care Provider [...] next fill. 90 Capsule 04/14/2022 3:49 PM [employer]ACILITY OPERATOR 2 Active ALPRAZolam (XANAX) 0.5 mg tablet [...] DAY 60 Tablet 2 04/28/2022 9:45 AM [employer] FACILITY OPERATOR 2 Active omeprazole (PriLOSEC) 40 mg Capsule, [...] mouth daily. 30 Capsule 04/28/2022 9:45 AM [employer] FACILITY OPERATOR 2 Active ALPRAZolam (XANAX) 0.5 mg tablet Take 1 Tablet (0.5 mg) by mouth every 12 hours as needed for anxiety. 14 Tablet 05/19/2022 7:02 PM [employer] W[employer]E FACILITY OPERATOR 2 Active ALPRAZolam (XANAX) 0.5 mg tablet Take 1 Tablet (0.5 mg) by mouth every 12 hours as needed for anxiety. 14 Tablet 06/16/2022 3:38 PM [employer] FACILITY OPERATOR 3 Active QUEtiapine (SEROquel) 100 mg tablet [...] 3 Active fluticasone propionate (FLONASE) 50 mcg/spray [place], Suspension nasal inhaler Administer 1 spray in [...]
--- NOTE | 2025-02-11 20:02 | ED.URI ---
HPI - URI/Sore Throat General Chief Complaint: Upper Respiratory Infection Stated Complaint: sick last 5 days fever, body aches, cough Time Seen by Provider: 02/11/25 19:48 Source: patient Mode of arrival: ambulatory Limitations: no limitations History of Present Illness HPI Narrative: Patient presents with report of feeling sick for the last 5 days, symptoms started on Wednesday night. He has had a fever with maximum temperature 102.7? F on Wednesday. In addition has myalgias throughout his body. He has had a cough that is occasionally productive. His head feels congested and he has been having both rhinorrhea as well as nasal congestion. He has some mild right ear pain. In addition he had his wisdom teeth extracted a few months ago but when the symptoms began he started developed being a throbbing dental pain in his right lower teeth. He has been trying Mucinex/mucous relief medicatoin as well as Tylenol, ibuprofen, DayQuil, and NyQuil. He is typically a 1 [id number] smoker although been smoking less recently. History of other episodes of bronchitis. Other than that denies any other longstanding/chronic underlying respiratory issues. He experiences intermittent chest pain with coughing , also shortness of breath with that. No sick contacts. Has a sore throat. No history of DM. No hemoptysis. Related Data Home Medications ?Medication ?Instructions ?Recorded ?Confirmed ?Last Taken ?Type fluoxetine 40 mg capsule mg 01/15/21 04/18/24 Unknown History metoprolol tartrate 100 mg tablet 01/15/21 04/18/24 Unknown History acetaminophen 500 mg capsule 500 mg PO Q6H PRN pain 01/21/21 04/18/24 Unknown History alprazolam 0.5 mg tablet (Xanax) 0.5 mg PO .COMPLEX 01/21/21 04/18/24 Unknown History buspirone 10 mg tablet 10 mg PO BID 01/21/21 04/18/24 Unknown History lisinopril 5 mg tablet 5 mg PO DAILY 01/21/21 04/18/24 01/19/21 History Allergies Allergy/AdvReac Type Severity Reaction Status Date / Time Cephalosporins Allergy Mild Unknown Verified 02/11/25 17:58 cefadroxil Allergy Unknown Skin Verified 02/11/25 17:58 Reaction Penicillins Allergy Rash Verified 02/11/25 17:58 [facility] Past Medical History Medical History (Updated 02/12/25 @ 00:00 by Shlomo Miller) Anxiety Tachycardia Hypertension Hypercholesterolemia Tobacco use BMI 34.0-34.9,adult Acute calculous cholecystitis IBS (irritable bowel syndrome) Bronchitis Exercise-induced asthma SVT (supraventricular tachycardia) Migraines HTN (hypertension) Surgical History Surgical History H/O wisdom tooth extraction 2024 Hx laparoscopic cholecystectomy 01/21/21 H/O hernia repair Hx of tonsillectomy Family History Family History Grandparent Depression Mother Depression Hypertension Social History Social History (Updated 02/13/25 @ 18:56 by Lindy Sorensen MD) Smoking packs per day: 1 Smoking cigarettes per day: 20.0 Smoking status: Current every day smoker Tobacco type: cigarettes Second hand tobacco smoke exposure: No Alcohol intake: current Drinks per week: 1 Substance use: never Substance use type: unknown Do You Feel Safe in your Home?: Yes Lack of Transportation: No Lack of Food: Never True Current Housing: I Have Housing Concerned About Future Housing: No Difficulty Paying Gas/Electric Bills: No Difficulty Paying for Meds: No Currently Unemployed: No Education: Bachelor's Degree Difficulty w/ Childcare or Family Care: No Occupation/Education: occupation Gender identity (if verbalized by the patient): Male Sexual Orientation (if Verbalized by the Patient): Straight or Heterosexual Spiritual care concerns: No Exam Narrative: GENERAL: Well-appearing, well-nourished, and in no acute distress. HEAD: Normocephalic, atraumatic. EYES: Non injected, non icteric. ENT: Nares clear, no rhinorrhea or epistaxis. Gross auditory acuity intact. Right ear without erythema; TM normal w/o effusion or bulging. No vessicles. Posterior oropharynx hyperemic w/o tonsillar hypertrophy or exudate. NECK: Supple. No meningismus. CHEST: Speaking in full sentences. No respiratory distress. Lungs with bilateral wheezes on auscultation but otherwise good air movement. HEART: Regular rate and rhythm. . ABDOMEN: Soft, nondistended. No rigidity or guarding. Not peritoneal EXTREMITIES: Normal range of motion. SKIN: Warm, dry, no rash. NEURO: No focal deficits. Alert and oriented. Answering questions. Following commands. Normal speech without aphasia or dysarthria. PSYCH: Normal mood and affect. Course Vital Signs Vital signs: Vital Signs Temperature 97.8 F 02/11/25 17:59 Pulse Rate 82 02/11/25 17:59 Respiratory Rate 18 02/11/25 17:59 Blood Pressure 146/96 H 02/11/25 17:59 Pulse Oximetry 98 02/11/25 17:59 Oxygen Delivery Room Air 02/11/25 17:59 Temperature 97.8 F 02/11/25 17:59 Pulse Rate 77 02/11/25 20:59 Respiratory Rate 20 02/11/25 20:59 Blood Pressure 146/96 H 02/11/25 17:59 Pulse Oximetry 98 02/11/25 17:59 Oxygen Delivery Room Air 02/11/25 19:48 MDM - URI/Sore Throat MDM Narrative Medical decision making narrative: Patient presents with report of fevers, myalgias, and cough of 5 days duration. In the emergency department he is afebrile with vital signs that show hypertension. Given no radiographic appearance of pneumonia, patient's symptoms do sound consistent with a diagnosis of bronchitis. Given that he has wheezes on auscultation, will give an albuterol treatment. P.o. Acetaminophen and ketorolac IM are also ordered in addition to a 1 time dose of Decadron time to symptom improvement of his sore throat. In addition benzonatate and a lozenge are ordered for other symptom management. Strep swab negative. He tests positive for covid. Discussed diagnosis with him. Shared decision making regarding Paxlovid, patient declines which is reasonable. Discussed symptom management/supportive care, resting and maintaining hydration. Provided Rx for Cepacol lozenges, Tessalon perles, and, because of wheeze, albuterol inhaler. Otherwise stable for DC. Provided work note. Differential Diagnosis Differential diagnosis: Likely upper respiratory infection, otitis media, sinusitis, viral infection, bronchitis, influenza, pharyngitis and other (pneumonia) Lab Data Attestation: I reviewed the patient's lab results. Labs: Lab Results 02/11/25 Range/Units 19:52 Influenza A (RT-PCR) Negative (Negative) Influenza B (RT-PCR) Negative (Negative) RSV (RT-PCR) Negative (Negative) SARS-CoV-2 RNA (RT-PCR) Positive A (Negative) Group A Strep (PCR) Not detected (Negative) Imaging Data Attestation: I personally reviewed and interpreted this imaging study as follows: My impression: No acute intrathoracic process on my independent interpretation of chest x-ray. There is no presence pacemaker/defibrillator device ECG Data EKG #1: Attestation: I personally reviewed and interpreted this ECG as follows: ECG completion date: 02/11/25 ECG completion time: 21:32 Interpretation: Pre populated EKG algorithm suggests electronic atrial pacemaker however patient does not have this and otherwise there are P-waves that preceded QRS complexes in QRS complexes follow P-waves. No pacemaker spikes although there is baseline artifact in some leads. Good R-wave progression across the precordial leads. T-wave inversion in 3 otherwise not inverted in contiguous inferior leads. No other T-wave inversions although flat in V6 Discharge Plan Discharge Clinical Impression: Acute bronchitis due to 2019-nCoV, Wheeze, Otalgia of right ear, Pharyngitis with viral syndrome Instructions: Antibiotic Form, How to Stop Smoking (ED), Pharyngitis (ED), Acute Bronchitis (ED), COVID-19 (Coronavirus Disease 2019) (ED), How to Recover from COVID-19 at Home (ED) Additional Instructions: You tested positive for COVID. Rest and maintain your hydration as these are the mainstays of treatment. Acetaminophen/Tylenol (maximum 4000 mg per day) is safe to take with NSAIDs (ibuprofen/Motrin) for pain relief. The Tessalon Perles and lozenges can help with the symptoms of cough and sore throat. For the wheezes, an albuterol inhaler has also been prescribed. Follow-up with your primary care provider. Return to the emergency department with any new or worsening symptoms. Patient Language: [place] Prescriptions: New benzonatate 100 mg capsule 100 mg PO BID PRN (Reason: cough) Qty: 20 0RF Cepacol Sore Throat-Cough 5-7.5 mg lozenge 1 raven PO Q4H PRN (Reason: cough) Qty: 16 0RF albuterol sulfate 90 mcg/actuation HFA aerosol inhaler 1 inh inhalation QID PRN (Reason: shortness of breath or wheezing) Qty: 6.7 0RF No Action fluoxetine 40 mg capsule metoprolol tartrate 100 mg Tablet alprazolam [Xanax] 0.5 mg tablet 0.5 mg PO .COMPLEX Rx Instructions: 0.5 mg PO take one tablet every 8 hours as needed for anxiety; buspirone 10 mg Tablet 10 mg PO BID lisinopril 5 mg Tablet 5 mg PO DAILY acetaminophen 500 mg Capsule 500 mg PO Q6H PRN (Reason: pain) Follow-up/Referrals: Ron,ANUJA Kitchen [Primary Care Provider] Stand Alone Forms: Work/School Release IP Time of Disposition: 20:58
[2025-02-11 20:24] LABS: Strep Group A RT-PCR NOT DETECTED (Negative)
[2025-02-11 20:35] LABS: Influenza A QL RT-PCR Negative (Negative); Influenza B QL RT-PCR Negative (Negative); RSV RNA, RT-PCR Negative (Negative); SARS-CoV-2 RNA PCR Positive (Negative)
[2025-02-11 20:49] VITALS: PULSE 79; RESP 20
[2025-02-11] MEDS: ALBUTEROL SULFATE NEB 2.5 MG/3 ML INH INHALATION (20:49)
[2025-02-11 20:59] VITALS: PULSE 77; RESP 20
[2025-02-11] MEDS: BENZOCAINE/MENTHOL (*BKC) 18 EA LOZENGE 1 LOZENGE PO (21:03)
[2025-02-11] MEDS: ACETAMINOPHEN 500 MG TABLET 1000 MG PO (21:03)
[2025-02-11] MEDS: BENZONATATE 100 MG CAPSULE PO (21:03)
[2025-02-11] MEDS: KETOROLAC 30 MG/ML VIAL (*BKC) IM (21:04)
--- NOTE | 2025-02-11 21:05 | ECG_ITS ---
Test Date: 2025-02-11 21:32:16 Measurements Intervals [place] Rate: 71 P: -36 VT: 139 QRS: 47 QRSD: 90 T: -38 QT: 348 QTc: 379 Interpretive Statements SINUS RHYTHM WITH SIGNIFICANT BASELINE ARTIFACT NONSPECIFIC ST & T-WAVE ABNORMALITY No previous ECG available for comparison Electronically Signed On 02-12-2025 10:34:55 CDT by Marc Astorga M.D.
== END 2025-02-11 21:35 | disposition home or self-care (01) ==
PROVIDERS: Emergency Medicine; Emergency Provider Student in an Organized Health Care Education/Training Program; PCP Physician Assistant
DX: U07.1 COVID-19 (principal); J20.8 Acute bronchitis due to other specified organisms; H92.01 Otalgia, right ear; J02.9 Acute pharyngitis, unspecified; F41.9 Anxiety disorder, unspecified; I10 Essential (primary) hypertension; E78.5 Hyperlipidemia, unspecified
CPT/HCPCS: 71045; 87637; 87651; 93005; 94640; 96372; 99283; A9270; J1885; J8540